=== PATIENT | male | born 1995 | race Caucasian/White ===

== ENCOUNTER 2024-08-14 10:39 | Outpatient (REF) | payer OTHER, SELFPAY ==
[2024-08-14 13:21] LABS: MANUAL DIFF FLAG NO
[2024-08-14 13:33] LABS: Basophils Percent Auto 0.5 % (0-2); Eosinophils Absolute Auto 0.6 X10*3/uL (0.0-0.4); Eosinophils Percent Auto 9.1 % (0-4); Hematocrit 44.3 % (42.0-52.0); Hemoglobin 14.5 g/dl (14.0-18.0); Imm Gran Abs Auto 0.01 X10*3/uL (0.00-0.03); Imm Gran Pct Auto 0.2 % (0.0-0.4); Lymphocytes Absolute Auto 2.6 X10*3/uL (1.2-4.9); Lymphocytes Percent Auto 42.9 % (20-40); Mean Corpuscular HGB Conc 32.7 g/dl (31.0-36.0); Mean Corpuscular Hemoglobin 26.8 pg (27.0-33.0); Mean Corpuscular Volume 81.9 fL (80.0-98.0); Mean Platelet Volume 9.1 fL (9.4-12.4); Monocytes Absolute Auto 0.6 X10*3/uL (0.1-1.2); Monocytes Percent Auto 9.9 % (2-11); Neutrophils Absolute Auto 2.3 x10*3/uL (2.0-8.3); Neutrophils Percent Auto 37.4 % (45-73); Platelet Count 277 X10*3/uL (160-400); Red Blood Count 5.41 X10*6/uL (4.60-5.80); Red Cell Distribution Width 15.1 % (11.0-16.0); White Blood Count 6.2 X10*3/uL (4.8-10.8)
[2024-08-14 14:03] LABS: Estimated Average Glucose 131 mg/dL; Hemoglobin A1c % 6.2 % (<6.0)
[2024-08-14 14:19] LABS: PSA,Total (Free>4and<10) 1.19 ng/mL (0.00-4.00)
[2024-08-14 14:21] LABS: Alanine Aminotransferase 36 U/L (0-40); Albumin Level 4.4 g/dL (3.5-5.0); Alkaline Phosphatase 63 U/L (39-117); Anion Gap 10 (12-20); Aspartate Amino Transferase 33 U/L (5-37); Bilirubin Direct 0.2 mg/dL (0.0-0.5); Bilirubin Total 0.5 mg/dL (0.0-1.0); Blood Urea Nitrogen 14 mg/dL (9-16); C Reactive Protein 0.17 mg/dL (< or = 0.50); Calcium 9.8 mg/dL (8.4-10.2); Carbon Dioxide 28 mmol/L (22-29); Chloride 107 mmol/L (96-108); Cholesterol 196 mg/dL (<200); Estimated Glomerular Filt Rate > 60; Glucose Fasting 96 mg/dL (60-99); HDL Cholesterol 43 mg/dL (>40); LDL Cholesterol Calculated 131 mg/dL (<100); Potassium 4.3 mmol/L (3.3-5.1); Sodium 141 mmol/L (135-145); Total Protein 8.2 g/dL (6.5-8.0); Triglycerides 114 mg/dL (<150)
[2024-08-14 14:22] LABS: TSH reflex Free T4 1.05 uIU/mL (0.32-4.0); Vitamin D 25-OH Total 25.4 ng/mL (>30)
--- OUTSIDE RECORDS SUMMARY | 2024-08-14 14:22 | XMS_ITS | Encounter Summary ---
Author Organization [facility] Address [address] [place] [address] Phone Care Team Providers Care Survey Crew Chief Name Role Phone Missael Gonzalez MD Primary Care Provider [phone] Encounter Details Date Type Department Care Team (Late st Contact Info) Description 08/24/2010 Documentation [facility] [place] [address] [place], [place] [id number] Family Medicine, Physician [address] [place], [place] 586741 Social History Tobacco Use Types Packs/Day Years [...] on filedocumented in this encounter Care Teams Survey Crew Chief Relationship Specialty Start Date End Date Missael Gonzalez MD [address] [place] [address] [place] [address] PCP - General 10/12/17 documented as of this encounter
--- OUTSIDE RECORDS SUMMARY | 2024-08-14 14:22 | XMS_ITS | Encounter Summary ---
Author Organization [facility] Address [address] [place] [address] Phone Care Team Providers Care Fishing Gear Mechanic Name Role Phone Missael Gonzalez MD Primary Care Provider [phone] Encounter Details Date Type Department Care Team (Late st Contact Info) Description 05/05/2012 [facility] [address] [place] [address] Family Medicine, Physician [address] [place], [place] [phone] Social History Tobacco Use Types Packs/Day Years [...] on filedocumented in this encounter Care Teams Fishing Gear Mechanic Relationship Specialty Start Date End Date Missael Gonzalez MD [address] [place] [address] [place] [address] PCP - General 10/12/17 documented as of this encounter
--- OUTSIDE RECORDS SUMMARY | 2024-08-14 14:22 | XMS_ITS | Encounter Summary ---
Author Organization [facility] Address [address] [place] [address] Phone Care Team Providers Care Jackscrew Worker Name Role Phone Missael Gonzalez MD Primary Care Provider [phone] Encounter Details Date Type Department Care Team (Late st Contact Info) Description 09/01/2010 Documentation [facility] [place] [address] [place] [address] Family Medicine, Physician [address] [place], [place] 66[address] Social History Tobacco Use Types Packs/Day Years [...] on filedocumented in this encounter Care Teams Jackscrew Worker Relationship Specialty Start Date End Date Missael Gonzalez MD [address] [place] [address] [place] [address] PCP - General 10/12/17 documented as of this encounter
--- OUTSIDE RECORDS SUMMARY | 2024-08-14 14:22 | XMS_ITS | Encounter Summary ---
Author Organization [facility] Address [address] [place] [address] Phone Care Team Providers Care Spud Sorter Name Role Phone Missael Gonzalez MD Primary Care Provider [phone] Encounter Details Date Type Department Care Team (Late st Contact Info) Description 07/31/2010 Conversion Encounter [facility] [address] [place] [address] [place] [address] Social History Tobacco Use Types Packs/Day Years [...] on filedocumented in this encounter Care Teams Spud Sorter Relationship Specialty Start Date End Date Missael Gonzalez MD [address] [place] [address] [place] [address] PCP - General 10/12/17 documented as of this encounter
--- OUTSIDE RECORDS SUMMARY | 2024-08-14 14:22 | XMS_ITS | Encounter Summary ---
Author Organization [facility] Address [address] [place] [address] Phone Care Team Providers Care Ice Grinder Name Role Phone Missael Gonzalez MD Primary Care Provider [phone] Encounter Details Date Type Department Care Team (Late st Contact Info) Description 09/07/2010 Documentation [facility] [place] [address] [place] [address] Family Medicine, Physician [address] [place], [place] [address] Social History Tobacco Use Types Packs/Day Years [...] on filedocumented in this encounter Care Teams Ice Grinder Relationship Specialty Start Date End Date Missael Gonzalez MD [address] [place] [address] [place] [address] PCP - General 10/12/17 documented as of this encounter
--- OUTSIDE RECORDS SUMMARY | 2024-08-14 14:22 | XMS_ITS | Encounter Summary ---
Author Organization [facility] Address [address] [place] [address] Phone Care Team Providers Care Adult High School Instructor Name Role Phone Missael Gonzalez MD Primary Care Provider [phone] Encounter Details Date Type Department Care Team (Late st Contact Info) Description 05/12/2012 [facility] [address] [place] [address] Family Medicine, Physician [address] [place], [place] [phone] Social History Tobacco Use Types Packs/Day Years [...] on filedocumented in this encounter Care Teams Adult High School Instructor Relationship Specialty Start Date End Date Missael Gonzalez MD [address] [place] [address] [place] [address] PCP - General 10/12/17 documented as of this encounter
--- OUTSIDE RECORDS SUMMARY | 2024-08-14 14:22 | XMS_ITS | Encounter Summary ---
Author Organization [facility] Address [address] [place] [address] Phone Care Team Providers Care District Plant Superintendent Name Role Phone Missael Gonzalez MD Primary Care Provider [phone] Encounter Details Date Type Department Care Team (Late st Contact Info) Description 07/06/2012 Documentation [facility] [place] [address] [place] [address] Family Medicine, Physician [address] [place], [place] 5039[address] Social History Tobacco Use Types Packs/Day Years [...] on filedocumented in this encounter Care Teams District Plant Superintendent Relationship Specialty Start Date End Date Missael Gonzalez MD [address] [place] [address] [place] [address] PCP - General 10/12/17 documented as of this encounter
--- OUTSIDE RECORDS SUMMARY | 2024-08-14 14:22 | XMS_ITS | Encounter Summary ---
Author Organization [facility] Address [address] [place] [address] Phone Care Team Providers Care Research Methodologist Name Role Phone Missael Gonzalez MD Primary Care Provider [phone] Encounter Details Date Type Department Care Team (Late st Contact Info) Description 07/20/2011 Medication Management [facility] [place] [address] [place] [address] Family Medicine, Physician [address] [place] [address] Social History Tobacco Use Types Packs/Day Years [...] on filedocumented in this encounter Care Teams Research Methodologist Relationship Specialty Start Date End Date Missael Gonzalez MD [facility] [facility] [address] PCP - General 10/12/17 documented as of this encounter
--- OUTSIDE RECORDS SUMMARY | 2024-08-14 14:22 | XMS_ITS | Encounter Summary ---
Author Organization [facility] Address [address] [place] [address] Phone Care Team Providers Care Pyrotechnics Press Tender Name Role Phone Missael Gonzalez MD Primary Care Provider Encounter Details Date Type Department Care Team (Late st Contact Info) Description 09/07/2010 [facility] [address] [place] [address] Family Medicine, Physician [address] [place], [place] [address] Social History Tobacco Use Types Packs/Day Years [...] on filedocumented in this encounter Care Teams Pyrotechnics Press Tender Relationship Specialty Start Date End Date Missael Gonzalez MD [address] [place] [address] [place] [address] PCP - General 10/12/17 documented as of this encounter
--- OUTSIDE RECORDS SUMMARY | 2024-08-14 14:22 | XMS_ITS | Clinical Summary ---
Author Organization [facility] Address [address] [place] [address] Phone Care Team Providers Care Terminal Carman Name Role Phone Missael Gonzalez MD Primary Care Provider [phone] Allergies No known active allergies Medications No [...] patient's age to complete this topic Insurance [facility] PUBLIC DIRECT [facility] PUBLIC DIRECT Care Teams Terminal Carman Relationship Specialty Start Date End Date Missael Gonzalez MD [address] [place] [address] [place] [address] PCP - General 10/12/17
--- OUTSIDE RECORDS SUMMARY | 2024-08-14 14:22 | XMS_ITS | Encounter Summary ---
Author Organization [facility] Address [address] [place] [address] Phone Care Team Providers Care Patent Prosecution Attorney Name Role Phone Missael Gonzalez MD Primary Care Provider [phone] Encounter Details Date Type Department Care Team (Late st Contact Info) Description 08/18/2010 Documentation [facility] [place] [address] [place] [address] Family Medicine, Physician [address] [place], [place] [address] Social History Tobacco Use Types Packs/Day Years [...] on filedocumented in this encounter Care Teams Patent Prosecution Attorney Relationship Specialty Start Date End Date Missael Gonzalez MD [address] [place] [address] [place] [address] PCP - General 10/12/17 documented as of this encounter
--- OUTSIDE RECORDS SUMMARY | 2024-08-14 14:22 | XMS_ITS | Encounter Summary ---
Author Organization [facility] Address [address] [place] [address] Phone Care Team Providers Care Electroplater Helper Name Role Phone Missael Gonzalez MD Primary Care Provider Encounter Details Date Type Department Care Team (Late st Contact Info) Description 08/12/2010 Documentation [facility] [place] Family [place] [address] [place] [address] Family Medicine, Physician [address] [place], [place] [address] Social History Tobacco Use Types Packs/Day Years [...] on filedocumented in this encounter Care Teams Electroplater Helper Relationship Specialty Start Date End Date Missael Gonzalez MD [address] [place] [address] [place] [address] PCP - General 10/12/17 documented as of this encounter
--- OUTSIDE RECORDS SUMMARY | 2024-08-14 14:22 | XMS_ITS | Encounter Summary ---
Author Organization [facility] Address [address] [place] [address] Phone Care Team Providers Care Cancer Registry Manager Name Role Phone Missael Gonzalez MD Primary Care Provider [phone] Encounter Details Date Type Department Care Team (Late st Contact Info) Description 07/30/2010 Documentation [facility] [place] [address] [place], [place] [phone] Family Medicine, Physician [address] [place], [place] [address] Social History Tobacco Use Types Packs/Day Years [...] on filedocumented in this encounter Care Teams Cancer Registry Manager Relationship Specialty Start Date End Date Missael Gonzalez MD [address] [place] [address] [place] [address] PCP - General 10/12/17 documented as of this encounter
--- OUTSIDE RECORDS SUMMARY | 2024-08-14 14:22 | XMS_ITS | Encounter Summary ---
Author Organization [facility] Address [address] [place] [address] Phone Care Team Providers Care School Cafeteria Head Cook Name Role Phone Missael Gonzalez MD Primary Care Provider [phone] Encounter Details Date Type Department Care Team (Late st Contact Info) Description 08/18/2010 Documentation [facility] [place] [address] [place] [address] Family Medicine, Physician [address] [place], [place] [address] Social History Tobacco Use Types Packs/Day Years [...] on filedocumented in this encounter Care Teams School Cafeteria Head Cook Relationship Specialty Start Date End Date Missael Gonzalez MD [address] [place] [address] [place] [address] PCP - General 10/12/17 documented as of this encounter
--- OUTSIDE RECORDS SUMMARY | 2024-08-14 14:22 | XMS_ITS | Encounter Summary ---
Author Organization [facility] Address [address] [place] [address] Phone Care Team Providers Care Clamper Name Role Phone Missael Gonzalez MD Primary Care Provider [phone] Encounter Details Date Type Department Care Team (Late st Contact Info) Description 07/30/2010 [facility] [address] [place] [address] Family Medicine, Physician [address] [place], [place] [phone] Social History Tobacco Use Types Packs/Day Years [...] on filedocumented in this encounter Care Teams Clamper Relationship Specialty Start Date End Date Missael Gonzalez MD [address] [place] [address] [place] [address] PCP - General 10/12/17 documented as of this encounter
--- OUTSIDE RECORDS SUMMARY | 2024-08-14 14:23 | XMS_ITS | Encounter Summary ---
Author Organization [facility] Address [address] [place] [address] Phone Care Team Providers Care Maintenance Foreman Name Role Phone Missael Gonzalez MD Primary Care Provider [phone] Encounter Details Date Type Department Care Team (Late st Contact Info) Description 09/06/2017 Documentation [facility] [place] [address] [place] [address] Family Medicine, Physician [address] [place], [place] [address] Social History Tobacco Use Types Packs/Day Years [...] on filedocumented in this encounter Care Teams Maintenance Foreman Relationship Specialty Start Date End Date Missael Gonzalez MD [address] [place] [address] [place] [address] PCP - General 10/12/17 documented as of this encounter
--- OUTSIDE RECORDS SUMMARY | 2024-08-14 14:23 | XMS_ITS | Encounter Summary ---
Author Organization [facility] Address [address] [place] [address] Phone Care Team Providers Care Fiberglass Laminator Name Role Phone Missael Gonzalez MD Primary Care Provider Encounter Details Date Type Department Care Team (Late st Contact Info) Description 06/20/2017 Medication Management [facility] [place] [address] [place] [address] Family Medicine, Physician [address] [place], [place] [address] Social History Tobacco Use Types Packs/Day Years [...] on filedocumented in this encounter Care Teams Fiberglass Laminator Relationship Specialty Start Date End Date Missael Gonzalez MD [facility] [place] [address] PCP - General 10/12/17 documented as of this encounter
--- OUTSIDE RECORDS SUMMARY | 2024-08-14 14:23 | XMS_ITS | Encounter Summary ---
Author Organization [facility] Address [address] [place] [address] Phone Care Team Providers Care Injection Molding Machine Setter Name Role Phone Missael Gonzalez MD Primary Care Provider [phone] Encounter Details Date Type Department Care Team (Late st Contact Info) Description 08/01/2013 [facility] [address] [place] [address] Family Medicine, Physician [address] [place], [place] [phone] Social History Tobacco Use Types Packs/Day Years [...] on filedocumented in this encounter Care Teams Injection Molding Machine Setter Relationship Specialty Start Date End Date Missael Gonzalez MD [address] [place] [address] [place] [address] PCP - General 10/12/17 documented as of this encounter
--- OUTSIDE RECORDS SUMMARY | 2024-08-14 14:23 | XMS_ITS | Encounter Summary ---
Author Organization [facility] Address [address] [place] [address] Phone Care Team Providers Care Parking Lot Spotter Name Role Phone Missael Gonzalez MD Primary Care Provider [phone] Encounter Details Date Type Department Care Team (Late st Contact Info) Description 09/20/2014 Documentation [facility] [place] [address] [place] [address] Family Medicine, Physician [address] [place], [place] [address] Social History Tobacco Use Types Packs/Day Years [...] on filedocumented in this encounter Care Teams Parking Lot Spotter Relationship Specialty Start Date End Date Missael Gonzalez MD [address] [place] [address] [place] [address] PCP - General 10/12/17 documented as of this encounter
--- OUTSIDE RECORDS SUMMARY | 2024-08-14 14:23 | XMS_ITS | Encounter Summary ---
Author Organization [facility] Address [address] [place] [address] Phone Care Team Providers Care Grade Checker Name Role Phone Missael Gonzalez MD Primary Care Provider [phone] Encounter Details Date Type Department Care Team (Late st Contact Info) Description 09/18/2015 Documentation [facility] [place] [address] [place] [address] Family Medicine, Physician [address] [place], [place] [address] Social History Tobacco Use Types Packs/Day Years [...] on filedocumented in this encounter Care Teams Grade Checker Relationship Specialty Start Date End Date Missael Gonzalez MD [address] [place] [address] [place] [address] PCP - General 10/12/17 documented as of this encounter
--- OUTSIDE RECORDS SUMMARY | 2024-08-14 14:23 | XMS_ITS | Encounter Summary ---
Author Organization [facility] Address [address] [place] [address] Phone Care Team Providers Care Psychotherapist Counselor Name Role Phone Missael Gonzalez MD Primary Care Provider [phone] Encounter Details Date Type Department Care Team (Late st Contact Info) Description 08/12/2015 [facility] [address] [place] [address] Family Medicine, Physician [address] [place], [place] [phone] Social History Tobacco Use Types Packs/Day Years [...] on filedocumented in this encounter Care Teams Psychotherapist Counselor Relationship Specialty Start Date End Date Missael Gonzalez MD [address] [place] [address] [place] [address] PCP - General 10/12/17 documented as of this encounter
--- OUTSIDE RECORDS SUMMARY | 2024-08-14 14:23 | XMS_ITS | Encounter Summary ---
Author Organization [facility] Address [address] [place] [address] Phone Care Team Providers Care Linter Drier Operator Name Role Phone Missael Gonzalez MD Primary Care Provider [phone] Encounter Details Date Type Department Care Team (Late st Contact Info) Description 07/30/2010 Documentation [facility] [place] [address] [place], [place] [address] Family Medicine, Physician [address] [place], [place] [address] Social History Tobacco Use Types Packs/Day Years [...] on filedocumented in this encounter Care Teams Linter Drier Operator Relationship Specialty Start Date End Date Missael Gonzalez MD [address] [place] [address] [place] [address] PCP - General 10/12/17 documented as of this encounter
--- OUTSIDE RECORDS SUMMARY | 2024-08-14 14:23 | XMS_ITS | Encounter Summary ---
Author Organization [facility] Address [address] [place] [address] Phone Care Team Providers Care Sole Layer Name Role Phone Missael Gonzalez MD Primary Care Provider [phone] Encounter Details Date Type Department Care Team (Late st Contact Info) Description 08/12/2014 Documentation [facility] [place] [address] [place] [address] Family Medicine, Physician [address] [place], [place] [address] Social History Tobacco Use Types Packs/Day Years [...] on filedocumented in this encounter Care Teams Sole Layer Relationship Specialty Start Date End Date Missael Gonzalez MD [address] [place] [address] [place] [address] PCP - General 10/12/17 documented as of this encounter
--- OUTSIDE RECORDS SUMMARY | 2024-08-14 14:23 | XMS_ITS | Encounter Summary ---
Author Organization [facility] Address [address] [place] [address] Phone Care Team Providers Care Dermatology Sales Representative Name Role Phone Missael Gonzalez MD Primary Care Provider [phone] Encounter Details Date Type Department Care Team (Late st Contact Info) Description 07/30/2010 Documentation [facility] [place] [address] [place], [place] [id number] Family Medicine, Physician [address] [place], [place] [address] Social History Tobacco Use Types Packs/Day Years [...] on filedocumented in this encounter Care Teams Dermatology Sales Representative Relationship Specialty Start Date End Date Missael Gonzalez MD [address] [place] [address] [place] [address] PCP - General 10/12/17 documented as of this encounter
--- OUTSIDE RECORDS SUMMARY | 2024-08-14 14:23 | XMS_ITS | Encounter Summary ---
Author Organization [facility] Address [address] [place] [address] Phone Care Team Providers Care Vegetable Ii Farmworker Name Role Phone Missael Gonzalez MD Primary Care Provider [phone] Encounter Details Date Type Department Care Team (Late st Contact Info) Description 08/12/2014 Medication Management [facility] Family Medicine [address] [place] [address] Family Medicine, Physician [address], [place] [address] Social History Tobacco Use Types Packs/Day Years [...] on filedocumented in this encounter Care Teams Vegetable Ii Farmworker Relationship Specialty Start Date End Date Missael Gonzalez MD [facility] [place] [address] PCP - General 10/12/17 documented as of this encounter
--- OUTSIDE RECORDS SUMMARY | 2024-08-14 14:23 | XMS_ITS | Encounter Summary ---
Author Organization [facility] Address [address] [place] [address] Phone Care Team Providers Care Mud Grinder Name Role Phone Missael Gonzalez MD Primary Care Provider [phone] Encounter Details Date Type Department Care Team (Late st Contact Info) Description 08/01/2013 Documentation [facility] [place] [address] [place], [place] [id number] Family Medicine, Physician [address] [place], [place] [address] Social History Tobacco Use Types Packs/Day Years [...] on filedocumented in this encounter Care Teams Mud Grinder Relationship Specialty Start Date End Date Missael Gonzalez MD [address] [place] [address] [place] [address] PCP - General 10/12/17 documented as of this encounter
--- OUTSIDE RECORDS SUMMARY | 2024-08-14 14:23 | XMS_ITS | Encounter Summary ---
Author Organization [facility] Address [address] [place] [address] Phone Care Team Providers Care Distribution Systems Superintendent Name Role Phone Missael Gonzalez MD Primary Care Provider [phone] Encounter Details Date Type Department Care Team (Late st Contact Info) Description 02/25/2015 Medication Management [facility] Family Medicine [address] [place] [address] Family Medicine, Physician [address] [place], [place] [address] Social History Tobacco Use Types Packs/Day Years [...] on filedocumented in this encounter Care Teams Distribution Systems Superintendent Relationship Specialty Start Date End Date Missael Gonzalez MD [facility]6 [facility] [place] [address] PCP - General 10/12/17 documented as of this encounter
--- OUTSIDE RECORDS SUMMARY | 2024-08-14 14:23 | XMS_ITS | Encounter Summary ---
Author Organization [facility] Address [address] [place] [address] Phone Care Team Providers Care Dough Mixing Machine Operator Name Role Phone Missael Gonzalez MD Primary Care Provider [phone] Encounter Details Date Type Department Care Team (Late st Contact Info) Description 07/30/2010 Consult [facility] [address] [place] [address] Family Medicine, Physician [address] [place], [place] [address] Social History Tobacco Use Types Packs/Day Years [...] on filedocumented in this encounter Care Teams Dough Mixing Machine Operator Relationship Specialty Start Date End Date Missael Gonzalez MD [address] [place] [address] [place] [address] PCP - General 10/12/17 documented as of this encounter
--- OUTSIDE RECORDS SUMMARY | 2024-08-14 14:23 | XMS_ITS | Encounter Summary ---
Author Organization [facility] Address [address] [place] [address] Phone Care Team Providers Care Crop Picker Name Role Phone Missael Gonzalez MD Primary Care Provider [phone] Encounter Details Date Type Department Care Team (Late st Contact Info) Description 07/30/2010 Documentation [facility] [place] [address] [place], [place] [id number] Family Medicine, Physician [address] [place], [place] [address] Social History Tobacco Use Types Packs/Day Years [...] on filedocumented in this encounter Care Teams Crop Picker Relationship Specialty Start Date End Date Missael Gonzalez MD [address] [place] [address] [place] [address] PCP - General 10/12/17 documented as of this encounter
--- OUTSIDE RECORDS SUMMARY | 2024-08-14 14:23 | XMS_ITS | Encounter Summary ---
Author Organization [facility] Address [address] [place] [address] Phone Care Team Providers Care Salesperson Handbags Name Role Phone Missael Gonzalez MD Primary Care Provider [phone] Encounter Details Date Type Department Care Team (Late st Contact Info) Description 07/30/2010 Documentation [facility] [place] [address] [place], [place] [id number] Family Medicine, Physician [address] [place], [place] [address] Social History Tobacco Use Types Packs/Day Years [...] on filedocumented in this encounter Care Teams Salesperson Handbags Relationship Specialty Start Date End Date Missael Gonzalez MD [address] [place] [address] [place] [address] PCP - General 10/12/17 documented as of this encounter
--- OUTSIDE RECORDS SUMMARY | 2024-08-14 14:23 | XMS_ITS | Encounter Summary ---
Author Organization [facility] Address [address] [place] [address] Phone Care Team Providers Care Foreign Car Mechanic Name Role Phone Missael Gonzalez MD Primary Care Provider [phone] Encounter Details Date Type Department Care Team (Late st Contact Info) Description 06/19/2015 Documentation [facility] [place] [address] [place] [address] Family Medicine, Physician [address] [place], [place] [address] Social History Tobacco Use Types Packs/Day Years [...] on filedocumented in this encounter Care Teams Foreign Car Mechanic Relationship Specialty Start Date End Date Missael Gonzalez MD [address] [place] [address] [place] [address] PCP - General 10/12/17 documented as of this encounter
--- OUTSIDE RECORDS SUMMARY | 2024-08-14 14:23 | XMS_ITS | Encounter Summary ---
Author Organization [facility] Address [address] [place] [address] Phone Care Team Providers Care Lap Winder Name Role Phone Missael Gonzalez MD Primary Care Provider [phone] Encounter Details Date Type Department Care Team (Late st Contact Info) Description 08/14/2016 Medication Management [facility] [place] [address] [place] [address] Family Medicine, Physician [address] [place], [place] [address]061 Social History Tobacco Use Types Packs/Day Years [...] on filedocumented in this encounter Care Teams Lap Winder Relationship Specialty Start Date End Date Missael Gonzalez MD [facility] [place] [address] PCP - General 10/12/17 documented as of this encounter
--- OUTSIDE RECORDS SUMMARY | 2024-08-14 14:23 | XMS_ITS | Encounter Summary ---
Author Organization [facility] Address [address] [place] [address] Phone Care Team Providers Care Corporate Risk Analyst Name Role Phone Missael Gonzalez MD Primary Care Provider [phone] Encounter Details Date Type Department Care Team (Late st Contact Info) Description 08/13/2014 Lab [facility] Family Medicine [address] [place] [address] Family Medicine, Physician [address] [place], [place] [id number] Social History Tobacco Use Types Packs/Day Years [...] on filedocumented in this encounter Care Teams Corporate Risk Analyst Relationship Specialty Start Date End Date Missael Gonzalez MD [address] [place] [address] [place] [address] PCP - General 10/12/17 documented as of this encounter
--- OUTSIDE RECORDS SUMMARY | 2024-08-14 14:23 | XMS_ITS | Encounter Summary ---
Author Organization [facility] Address [address] [place] [address] Phone Care Team Providers Care Bell Staff Name Role Phone Missael Gonzalez MD Primary Care Provider [phone] Encounter Details Date Type Department Care Team (Late st Contact Info) Description 08/01/2013 Medication Management [facility] [place] [address] [place] [address] Family Medicine, Physician [address] [place], [place] [address] Social History Tobacco Use Types Packs/Day Years [...] on filedocumented in this encounter Care Teams Bell Staff Relationship Specialty Start Date End Date Missael Gonzalez MD [facility] [place] [address] PCP - General 10/12/17 documented as of this encounter
--- OUTSIDE RECORDS SUMMARY | 2024-08-14 14:23 | XMS_ITS | Encounter Summary ---
Author Organization [facility] Address [address] [place] [address] Phone Care Team Providers Care Drop Board Man Name Role Phone Missael Gonzalez MD Primary Care Provider [phone] Encounter Details Date Type Department Care Team (Late st Contact Info) Description 09/07/2010 Documentation [facility] [place] [address] [place] [address] Family Medicine, Physician [address] [place], [place] [address] Social History Tobacco Use Types Packs/Day Years [...] on filedocumented in this encounter Care Teams Drop Board Man Relationship Specialty Start Date End Date Missael Gonzalez MD [address] [place] [address] [place] [address] PCP - General 10/12/17 documented as of this encounter
--- OUTSIDE RECORDS SUMMARY | 2024-08-14 14:23 | XMS_ITS | Encounter Summary ---
Author Organization [facility] Address [address] [place] [address] Phone Care Team Providers Care Senior Business Objects Developer Name Role Phone Missael Gonzalez MD Primary Care Provider [phone] Encounter Details Date Type Department Care Team (Late st Contact Info) Description 08/28/2013 Medication Management [facility] [place] [address] [place] [address] Family Medicine, Physician [address] [place] [address] Social History Tobacco Use Types Packs/Day Years [...] on filedocumented in this encounter Care Teams Senior Business Objects Developer Relationship Specialty Start Date End Date Missael Gonzalez MD [facility]6 [facility] [place] [address] PCP - General 10/12/17 documented as of this encounter
--- OUTSIDE RECORDS SUMMARY | 2024-08-14 14:23 | XMS_ITS | Encounter Summary ---
Author Organization [facility] Address [address] [place] [address] Phone Care Team Providers Care Hoseman Name Role Phone Missael Gonzalez MD Primary Care Provider [phone] Encounter Details Date Type Department Care Team (Late st Contact Info) Description 08/01/2013 Documentation [facility] [place] [address] [place], [place] [address] Family Medicine, Physician [address] [place], [place] [address] Social History Tobacco Use Types Packs/Day Years [...] on filedocumented in this encounter Care Teams Hoseman Relationship Specialty Start Date End Date Missael Gonzalez MD [address] [place] [address] [place] [address] PCP - General 10/12/17 documented as of this encounter
--- OUTSIDE RECORDS SUMMARY | 2024-08-14 14:23 | XMS_ITS | Encounter Summary ---
Author Organization [facility] Address [address] [place] [address] Phone Care Team Providers Care Steam Plant Control Room Operator Name Role Phone Missael Gonzalez MD Primary Care Provider [phone] Encounter Details Date Type Department Care Team (Late st Contact Info) Description 08/11/2015 Documentation [facility] [place] [address] [place] [address] Family Medicine, Physician [address] [place], [place] [address] Social History Tobacco Use Types Packs/Day Years [...] on filedocumented in this encounter Care Teams Steam Plant Control Room Operator Relationship Specialty Start Date End Date Missael Gonzalez MD [address] [place] [address] [place] [address] PCP - General 10/12/17 documented as of this encounter
--- OUTSIDE RECORDS SUMMARY | 2024-08-14 14:23 | XMS_ITS | Encounter Summary ---
Author Organization [facility] Address [address] [place] [address] Phone Care Team Providers Care Steel Rod Buster Name Role Phone Missael Gonzalez MD Primary Care Provider [phone] Encounter Details Date Type Department Care Team (Late st Contact Info) Description 08/11/2015 Medication Management [facility] [place] Family Medicine [address] [place] [address] Family Medicine, Physician [address] [place], [place] [address] Social History Tobacco Use Types Packs/Day Years [...] on filedocumented in this encounter Care Teams Steel Rod Buster Relationship Specialty Start Date End Date Missael Gonzalez MD [facility]6 [facility] [place] [address] PCP - General 10/12/17 documented as of this encounter
--- OUTSIDE RECORDS SUMMARY | 2024-08-14 14:23 | XMS_ITS | Encounter Summary ---
Author Organization [facility] Address [address] [place] [address] Phone Care Team Providers Care Assessment Manager Name Role Phone Missael Gonzalez MD Primary Care Provider [phone] Encounter Details Date Type Department Care Team (Late st Contact Info) Description 08/14/2016 Documentation [facility] [place] [address] [place] [address] Family Medicine, Physician [address] [place], [place] [address] Social History Tobacco Use Types Packs/Day Years [...] on filedocumented in this encounter Care Teams Assessment Manager Relationship Specialty Start Date End Date Missael Gonzalez MD [address] [place] [address] [place] [address] PCP - General 10/12/17 documented as of this encounter
[2024-08-14 14:37] LABS: Folate 12.4 ng/mL (> or = 4.0); Vitamin B12 347 pg/mL (200-900)
[2024-08-22 15:33] LABS: Vitamin B1 11 nmol/L (8-30)
== END 2024-08-14 10:40 | disposition home or self-care (01) ==
LOC: HO.HMGCLDS 10:39
PROVIDERS: PCP Physician Assistant Medical; Visit Provider Physician Assistant Medical
DX: J45.909 Unspecified asthma, uncomplicated (principal); I10 Essential (primary) hypertension; E66.01 Morbid (severe) obesity due to excess calories; Z68.41 Body mass index [BMI] 40.0-44.9, adult; I83.819 Varicose veins of unspecified lower extremity with pain; Z76.89 Persons encountering health services in other specified circumstances; Z71.3 Dietary counseling and surveillance; Z13.1 Encounter for screening for diabetes mellitus; Z12.5 Encounter for screening for malignant neoplasm of prostate; Z00.00 Encounter for general adult medical examination without abnormal findings
CPT/HCPCS: 36415; 80053; 80061; 80076; 82248; 82306; 82607; 82746; 83036; 83735; 84153; 84425; 84443; 85025; 86140; 96127

== ENCOUNTER 2024-08-14 10:39 | Outpatient (AMB) | payer OTHER, SELFPAY ==
--- NOTE | 2024-08-14 10:45 | A.OFFPC_ITS ---
Vital Signs 08/14/24 10:46 Height 5 ft 7 in Weight 270 lb BMI 42.3 BP 138/80 Respiration 18 Pulse 76 Pulse Source Pulse Oximeter Temp 97.6 F Temp Source Temporal Artery Scan Pulse Oximetry (%) 97 Oxygen Delivery Method Room Air Intake Visit Reasons: New patient Plastic Dolls Mold Filler Required: No Accompanied by: Self / Same As Patient Allergies No Known Allergies [No Known Allergies*] Allergy (Unverified 08/14/24 10:58) Medication List - Last Reconciled 08/14/24 by Sandra Carson PA-C No Known Home Meds Tobacco use date assessed: 08/14/24 Dental Screening Dental Screen Date: 08/14/24 Did you have a dental visit in the last 12 months?: Yes Did you have a dental problem in the last 6 months where you did not have access to dental care?: No COUNT INCLUDES [facility] Medical History (Updated 08/14/24 @ 11:27 by Sandra Carson PA-C) Morbid obesity with BMI of 40.0-44.9, adult Establishing care with new doctor, encounter for Varicose veins with pain Hypertension Asthma Family History Mother Mandeep's disease Social History Housing: Apartment Alcohol intake: never Patient Tobacco Use Status: Never used Tobacco service: No Current occupational status: employed Cognitive needs: No Hearing needs: No Vision needs: Yes Questionnaire PHQ-9 Over the last 2 weeks, how often have you been bothered by any of the following problems? 1. Little interest or pleasure in doing things: not at all 2. Feeling down, depressed, or hopeless: not at all 3. Trouble falling or staying asleep, or sleeping too much: not at all 4. Feeling tired or having little energy: not at all 5. Poor appetite or overeating: not at all 6. Feeling bad about yourself - or that you are a failure or have let yourself or your family down: not at all 7. Trouble concentrating on things, such as reading the newspaper or watching television: not at all 8. Moving or speaking so slowly that other people could have noticed. Or the opposite - being so fidgety or restless that you have been moving around a lot more than usual: not at all 9. Thoughts that you would be better off or of hurting yourself in some way: not at all Total score: 0 Depression Screening Interpretation: Negative Depression Screening Done: Yes 80195 - PHQ-9 Billing: Yes Source: Developed by Drs. Itz Garcia, Meg Garduno, Corby Craft and colleagues, with an educational monica from [employer]. Thrive Questionnaire Date Thrive assessed: 08/14/24 I am a: Patient What is your living situation today?: I have a steady place to live Within the past 12 months, did the food you bought not last and you didn't have the money to get more?: Never true Within the past 12 months, did you worry whether your food would run out before you got money to buy more?: Never true Do you have trouble paying for medicines?: No Do you have trouble getting transportation to medical appointments?: No Do you have trouble paying your heating and electricity bill?: No Do you have trouble taking care of your child, family member or friend?: No Do you have trouble with day-to-day activities such as bathing, preparing meals, shopping, managing finances, etc.?: No Are you currently unemployed and looking for a job?: No Are you interested in more education?: No THRIVE Score: 0 AUDIT C Alcohol Use Questionnaire (AUDIT-C) 1. How often do you have a drink containing alcohol?: Never 3. How often do you have six or more drinks on one occasion?: Never Total Score: 0 Score Reviewed/Action Taken: No THERESE-7 AMB Questionnaire THERESE-7 Date THERESE - 7 assessed: 08/14/24 Feeling nervous, anxious, or on edge: 0 = Not at all Not being able to stop or control worryin = Several days Worrying too much about different things: 0 = Not at all Trouble relaxin = Not at all Being so restless that it is hard to sit still: 0 = Not at all Becoming easily annoyed or irritable: 0 = Not at all Feeling afraid as if something awful might happen: 0 = Not at all Total THERESE-7 score (0-4 normal; 5-9 mild; 10-14 moderate; 15-21 severe): 1 Source: Developed by Drs. Itz Garcia, Meg Garduno, Corby Craft and colleagues, with an educational monica from [employer]. THERESE-7 Assessment Billing THERESE-7 Assessment Tool: THERESE-7 Assessment 35137 Physical exam (Primary Care) Vital Signs: Last Vital Signs Temp 97.6 F 08/14/24 10:46 Pulse 76 08/14/24 10:46 Resp 18 08/14/24 10:46 BP 138/80 08/14/24 10:46 Pulse Ox 97 08/14/24 10:46 Oxygen Delivery Method Room Air 08/14/24 10:46 BMI result Body Mass Index 42.3 Tobacco/Smoking Status: Tobacco use Status Tobacco use date assessed 08/14/24 08/14/24 10:53 Patient Tobacco Use Status Never used Tobacco 08/14/24 10:53 PHQ-9: PHQ-9 Score PHQ-9: Total score 0 08/14/24 10:53 Depression Screening Interpretation: Negative Thrive Assessment: Date of Thrive Assessment Date Thrive assessed 08/14/24 08/14/24 10:53 Coding Level of Care Code New Pt Level 4 (35575) Complex EM visit Add On G2211 Diagnoses Asthma J45.909 Hypertension I10 Varicose veins with pain I83.819 Establishing care with new doctor, encounter for Z76.89 Morbid obesity with BMI of 40.0-44.9, adult E66.01; Z68.41 Additional Codes PHQ-9 - 06223 - PHQ-9 Billing: Yes ([id number]) THERESE-7 Assessment Billing - THERESE-7 Assessment Tool: THERESE-7 Assessment 40427 ([id number]) Assessment & Plan Assessment & Plan (1) Asthma: Code(s): J45.909 - Unspecified asthma, uncomplicated Category: Medical Plan: Patient reports childhood asthma. He has not had any symptoms since then. Condition is chronic and stable continue to monitor. (2) Hypertension: Code(s): I10 - Essential (primary) hypertension Category: Medical Plan: Patient being diagnosed with hypertension at this time. Blood pressure over the past 2 weeks that he has been monitoring have been 140/85 for an average range. Therefore patient will be started on lisinopril 5 mg daily. Patient to return in 1 month for blood pressure check. (3) Varicose veins with pain: Code(s): I83.819 - Varicose veins of unspecified lower extremity with pain Category: Medical Plan: Patient with varicose veins to bilateral lower extremity although reports pain to the right lower extremity. There is no calf tenderness or lower extremity edema. Will refer to vascular surgery for possible vein stripping. Condition is chronic and stable continue to monitor. (4) Establishing care with new doctor, encounter for: Code(s): Z76.89 - Persons encountering health services in other specified circumstances Category: Medical Plan: Patient has not seen a PCP since his Pediatrics at [facility] with Dr. Gonzalez. Will obtain records. (5) Morbid obesity with BMI of 40.0-44.9, adult: Code(s): E66.01 - Morbid (severe) obesity due to excess calories; Z68.41 - Body mass index [BMI] 40.0-44.9, adult Category: Medical Plan: Patient improving his diet intake and exercise regimen. Condition is chronic and stable continue to monitor. Plan Plan Patient was informed and verbally consented to the use of an ambient scribe for clinic note documentation during this visit. 1. Essential Hypertension Plan includes initiating lisinopril 5 mg once daily to manage blood pressure, along with dietary sodium restriction. The patient will monitor his blood pressure two hours post-medication intake. A follow-up appointment in one month will assess blood pressure control and discuss any side effects. Pending laboratory work will further aid in evaluating the patient's overall cardiovascular health. 2. History Of Asthma In Childhood Currently inactive; monitoring without active intervention is recommended. The patient was advised on recognizing potential respiratory symptoms and keeping vigilant during high-risk situations. 3. Varicose veins to bilateral lower extremity with pain No calf tenderness bilaterally. No lower extremity edema noted. No signs of infection. Will refer to vascular surgery for further evaluation and treatment for possible vein stripping. Discussion Notes I reviewed Lorenzo's diagnosis of hypertension and the initiation of lisinopril 5 mg daily. We discussed the risks of unchecked hypertension, including cardiovascular complications. I emphasized lifestyle modifications, specifically reducing dietary sodium, as a non-pharmacological intervention to support medication. The patient agreed to regular blood pressure monitoring and plans to revisit in one month for further evaluation. Future lab tests will confirm the absence of additional comorbidities such as diabetes. Discussions included the minor role aspirin may have played in past management. I addressed the inactive childhood asthma, reassuring Lorenzo that no current intervention is needed unless symptoms change. Referrals for potential varicose veins were discussed should vascular issues persist. Orders: Orders PSA,Total (Free>4and<10) Today Z00.00 - Encounter for general adult medical examination without abnormal findings Referrals Vascular Surgery Referral I10 - Essential (primary) hypertension, I83.819 - Varicose veins of unspecified lower extremity with pain, J45.909 - Unspecified asthma, uncomplicated, Z76.89 - Persons encountering health services in other specified circumstances Medications: New lisinopril 5 mg PO DAILY 90 tabs 1RF Patient Instructions: Patient Instructions - Take lisinopril 5 mg once daily as prescribed. - Check your blood pressure two hours after taking lisinopril and record the readings. - Reduce salt intake in your diet. Avoid or limit high-sodium foods. - Attend a follow-up appointment in one month. - Go for a blood test directly after this appointment as directed. - Contact us if you experience dizziness or headaches after medication, or if blood pressure falls below 120/80 mmHg and symptoms arise. - Continue monitoring for any asthma-like symptoms and reach out if respiratory issues arise. Scribe Plan - Not visible on output: History of Present Illness The patient is a 29-year-old male presenting with the primary reason to establish care and evaluate blood pressure. He is diagnosed with essential hypertension after observing elevated blood pressure readings at home. During today's evaluation, his blood pressure is recorded at 130/80 mmHg, showing an improvement. He has a history of asthma that was present during childhood but has not persisted into his adult years. The patient manages his hypertension currently with aspirin at times, although adherence has been inconsistent. He is concerned about dietary effects on his blood pressure, especially due to the high salt intake he recognized in his diet. The effects of dietary modification were discussed as potential enhancers of his medical regimen's effectiveness. His medication adherence and future lab work will further guide management plans. Social History - Family: for 7 years, expecting a child - Nutrition: Regular high-salt intake, plans to reduce sodium - Lifestyle: Indicated moderate to low exercise activity Review of Systems - Respiratory: Reports resolution of cough - Cardiovascular: Reports monitoring blood pressure - Gastrointestinal: Denies current gastrointestinal symptoms Physical Exam Appearance: Alert. Oriented X3. No acute distress. Head: Normal external exam. Normocephalic. Atraumatic. Eyes: Pupils are equal, round, and reactive to light. Extraocular movements intact. Conjunctiva and sclera normal. Eyelids normal. Ears: External auditory canal normal. Tympanic membranes normal. Throat: Pharynx normal. Uvula midline. Moist mucous membranes. Neck: Normal inspection. Neck supple. Full range of motion. No adenopathy. Thyroid Normal. No meningeal signs. No neck mass noted. Cardiovascular: Normal heart rate and rhythm. Heart sound normal. No murmurs noted. Pulses normal throughout. Respiratory: No respiratory distress. Painless inspiration. Breath sounds normal. No wheezes/rales/rhonchi noted. Chest nontender. No accessory muscle usage noted or decreased air movement noted. Abdomen: Soft and nontender. Bowel sounds normal in all 4 quadrants. No distention noted. No organomegaly noted. No visible injury noted. Back: No costovertebral angle tenderness. Full range of motion noted. Skin: Skin warm and dry. Normal skin color. Normal skin turgor. No rashes/lesions/lacerations noted. Extremities: No lower extremity edema. Extremities exhibit normal range of motion. Extremities nontender. Neuro: Oriented X 3. No motor deficit. No sensory deficit. Reflexes normal. Plan Patient was informed and verbally consented to the use of an ambient scribe for clinic note documentation during this visit. 1. Essential Hypertension Plan includes initiating lisinopril 5 mg once daily to manage blood pressure, along with dietary sodium restriction. The patient will monitor his blood pressure two hours post-medication intake. A follow-up appointment in one month will assess blood pressure control and discuss any side effects. Pending laboratory work will further aid in evaluating the patient's overall cardiovascular health. 2. History Of Asthma In Childhood Currently inactive; monitoring without active intervention is recommended. The patient was advised on recognizing potential respiratory symptoms and keeping vigilant during high-risk situations. Discussion Notes I reviewed Lorenzo's diagnosis of hypertension and the initiation of lisinopril 5 mg daily. We discussed the risks of unchecked hypertension, including cardiovascular complications. I emphasized lifestyle modifications, specifically reducing dietary sodium, as a non-pharmacological intervention to support medication. The patient agreed to regular blood pressure monitoring and plans to revisit in one month for further evaluation. Future lab tests will confirm the absence of additional comorbidities such as diabetes. Discussions included the minor role aspirin may have played in past management. I addressed the inactive childhood asthma, reassuring Lorenzo that no current intervention is needed unless symptoms change. Referrals for potential varicose veins were discussed should vascular issues persist. Patient Instructions - Take lisinopril 5 mg once daily as prescribed. - Check your blood pressure two hours after taking lisinopril and record the readings. - Reduce salt intake in your diet. Avoid or limit high-sodium foods. - Attend a follow-up appointment in one month. - Go for a blood test directly after this appointment as directed. - Contact us if you experience dizziness or headaches after medication, or if blood pressure falls below 120/80 mmHg and symptoms arise. - Continue monitoring for any asthma-like symptoms and reach out if respiratory issues arise.
[2024-08-14 10:46] VITALS: BP 138/80; PULSE 76; RESP 18; TEMP 36.4; O2SAT 97; BMI 42.3
--- OUTSIDE RECORDS SUMMARY | 2024-08-14 12:46 | XMS_ITS | Encounter Summary ---
Author Organization [facility] Address [address] [place] [address] Phone Care Team Providers Care Insurance Claims Clerk Name Role Phone Missael Gonzalez MD Primary Care Provider [phone] Encounter Details Date Type Department Care Team (Late st Contact Info) Description 05/12/2012 Lab [facility] [address] [place] [address] Family Medicine, Physician [address] [place], [place] [id number] Social History Tobacco Use Types Packs/Day Years Used Date Smoking Tobacco: Never Assessed Sex and Gender Information Value Date Recorded Sex Assigned at Not on file Legal Sex Male 6:25 PM EDT Gender Identity Not on file Sexual Orientation Not on file documented as of this encounter Plan of Treatment Not on file documented as of this encounter Visit Diagnoses Not on filedocumented in this encounter Care Teams Insurance Claims Clerk Relationship Specialty Start Date End Date Missael Gonzalez MD [address] [place] [address] [place] [address] PCP - General 10/12/17 documented as of this encounter
--- OUTSIDE RECORDS SUMMARY | 2024-08-14 12:46 | XMS_ITS | Encounter Summary ---
Author Organization [facility] Address [address] [place] [address] Phone Care Team Providers Care Cash Register Servicer Name Role Phone Missael Gonzalez MD Primary Care Provider [phone] Encounter Details Date Type Department Care Team (Late st Contact Info) Description 07/20/2011 Medication Management [facility] Family Medicine [address] [place] [address] Family Medicine, Physician [address] [place] [address] Social History Tobacco Use Types Packs/Day Years Used Date Smoking Tobacco: Never Comments:Never Smoker Sex and Gender Information Value Date Recorded Sex Assigned at Not on file Legal Sex Male 6:25 PM EDT Gender Identity Not on file Sexual Orientation Not on file documented as of this encounter Plan of Treatment Not on file documented as of this encounter Visit Diagnoses Not on filedocumented in this encounter Care Teams Cash Register Servicer Relationship Specialty Start Date End Date Missael Gonzalez MD [facility] [place] [address] PCP - General 10/12/17 documented as of this encounter
--- OUTSIDE RECORDS SUMMARY | 2024-08-14 12:47 | XMS_ITS | Encounter Summary ---
Author Organization [facility] Address [address] [place] [address] Phone Care Team Providers Care Precision Layout Worker Name Role Phone Missael Gonzalez MD Primary Care Provider [phone] Encounter Details Date Type Department Care Team (Late st Contact Info) Description 09/01/2010 Documentation [facility] Family Medicine [address] [place] [address] Family Medicine, Physician [address] [place], [place] [address] Social History Tobacco Use Types Packs/Day Years [...] on filedocumented in this encounter Care Teams Precision Layout Worker Relationship Specialty Start Date End Date Missael Gonzalez MD [address] [place] [address] [place] [address] PCP - General 10/12/17 documented as of this encounter
--- OUTSIDE RECORDS SUMMARY | 2024-08-14 12:47 | XMS_ITS | Encounter Summary ---
Author Organization [facility] Address [address] [place] [address] Phone Care Team Providers Care Stab Setter And Driller Name Role Phone Missael Gonzalez MD Primary Care Provider [phone] Encounter Details Date Type Department Care Team (Late st Contact Info) Description 09/07/2010 [facility] [address] [place] [address] Family Medicine, Physician [address] [place], [place] [id number] Social History Tobacco Use Types Packs/Day Years [...] on filedocumented in this encounter Care Teams Stab Setter And Driller Relationship Specialty Start Date End Date Missael Gonzalez MD [address] [place] [address] [place] [address] PCP - General 10/12/17 documented as of this encounter
--- OUTSIDE RECORDS SUMMARY | 2024-08-14 12:47 | XMS_ITS | Encounter Summary ---
Author Organization [facility] Address [address] [place] [address] Phone Care Team Providers Care Anchor Tack Puller Name Role Phone Missael Gonzalez MD Primary Care Provider [phone] Encounter Details Date Type Department Care Team (Late st Contact Info) Description 08/18/2010 Documentation [facility] [address] [place] [address] Family Medicine, Physician [address] [place], [place] [address] Social History Tobacco Use Types Packs/Day Years [...] on filedocumented in this encounter Care Teams Anchor Tack Puller Relationship Specialty Start Date End Date Missael Gonzalez MD [address] [place] [address] [place] [address] PCP - General 10/12/17 documented as of this encounter
--- OUTSIDE RECORDS SUMMARY | 2024-08-14 12:47 | XMS_ITS | Encounter Summary ---
Author Organization [facility] Address [address] [place] [address] Phone Care Team Providers Care Solid Waste Division Supervisor Name Role Phone Missael Gonzalez MD Primary Care Provider [phone] Encounter Details Date Type Department Care Team (Late st Contact Info) Description 08/13/2014 [facility] [address] [place] [address] Family Medicine, Physician [address] [place], [place] [id number] Social History Tobacco Use Types Packs/Day Years [...] on filedocumented in this encounter Care Teams Solid Waste Division Supervisor Relationship Specialty Start Date End Date Missael Gonzalez MD [address] [place] [address] [place] [address] PCP - General 10/12/17 documented as of this encounter
--- OUTSIDE RECORDS SUMMARY | 2024-08-14 12:47 | XMS_ITS | Encounter Summary ---
Author Organization [facility] Address [address] [place] [address] Phone Care Team Providers Care Workforce Development Assistant Name Role Phone Missael Gonzalez MD Primary Care Provider [phone] Encounter Details Date Type Department Care Team (Late st Contact Info) Description 08/12/2015 [facility] [address] [place] [address] Family Medicine, Physician [address] [place], [place] [id number] Social History Tobacco Use Types Packs/Day Years [...] on filedocumented in this encounter Care Teams Workforce Development Assistant Relationship Specialty Start Date End Date Missael Gonzalez MD [address] [place] [address] [place] [address] PCP - General 10/12/17 documented as of this encounter
--- OUTSIDE RECORDS SUMMARY | 2024-08-14 12:47 | XMS_ITS | Encounter Summary ---
Author Organization [facility] Address [address] [place] [address] Phone Care Team Providers Care Development Professional Name Role Phone Missael Gonzalez MD Primary Care Provider [phone] Encounter Details Date Type Department Care Team (Late st Contact Info) Description 08/01/2013 Medication Management [facility] [address] [place] [address] Family Medicine, Physician [address] [place], [place] [address] Social History Tobacco Use Types Packs/Day Years [...] on filedocumented in this encounter Care Teams Development Professional Relationship Specialty Start Date End Date Missael Gonzalez MD [facility] [facility] [place] [address] PCP - General 10/12/17 documented as of this encounter
--- OUTSIDE RECORDS SUMMARY | 2024-08-14 12:47 | XMS_ITS | Encounter Summary ---
Author Organization [facility] Address [address] [place] [address] Phone Care Team Providers Care Crimper Operator Name Role Phone Missael Gonzalez MD Primary Care Provider [phone] Encounter Details Date Type Department Care Team (Late st Contact Info) Description 08/01/2013 [facility] [address] [place] [address] Family Medicine, Physician [address] [place], [place] [phone] Social History Tobacco Use Types Packs/Day Years [...] on filedocumented in this encounter Care Teams Crimper Operator Relationship Specialty Start Date End Date Missael Gonzalez MD [address] [place] [address] [place] [address] PCP - General 10/12/17 documented as of this encounter
--- OUTSIDE RECORDS SUMMARY | 2024-08-14 12:47 | XMS_ITS | Encounter Summary ---
Author Organization [facility] Address [address] [place] [address] Phone Care Team Providers Care Pet Training Instructor Name Role Phone Missael Gonzalez MD Primary Care Provider Encounter Details Date Type Department Care Team (Late st Contact Info) Description 08/11/2015 Medication Management [facility] Family Medicine [address] [place] [address] Family Medicine, Physician [address], [place] [address] Social History Tobacco Use Types Packs/Day Years [...] on filedocumented in this encounter Care Teams Pet Training Instructor Relationship Specialty Start Date End Date Missael Gonzalez MD [facility] [place] [address] PCP - General 10/12/17 documented as of this encounter
--- OUTSIDE RECORDS SUMMARY | 2024-08-14 12:47 | XMS_ITS | Encounter Summary ---
Author Organization [facility] Address [address] [place] [address] Phone Care Team Providers Care Bank Representative Name Role Phone Missael Gonzalez MD Primary Care Provider [phone] Encounter Details Date Type Department Care Team (Late st Contact Info) Description 07/06/2012 Documentation [facility] [place] [address] [place] [address] Family Medicine, Physician [address] [place], [place] [address] Social History Tobacco Use Types Packs/Day Years [...] on filedocumented in this encounter Care Teams Bank Representative Relationship Specialty Start Date End Date Missael Gonzalez MD [address] [place] [address] [place] [address] PCP - General 10/12/17 documented as of this encounter
--- OUTSIDE RECORDS SUMMARY | 2024-08-14 12:47 | XMS_ITS | Encounter Summary ---
Author Organization [facility] Address [address] [place] [address] Phone Care Team Providers Care Tour Manager Name Role Phone Missael Gonzalez MD Primary Care Provider [phone] Encounter Details Date Type Department Care Team (Late st Contact Info) Description 06/20/2017 Medication Management [facility] [place] [address] [place] [address] Family Medicine, Physician [address] [place], [place] [address]31 Social History Tobacco Use Types Packs/Day Years [...] on filedocumented in this encounter Care Teams Tour Manager Relationship Specialty Start Date End Date Missael Gonzalez MD [facility] [place] [address] PCP - General 10/12/17 documented as of this encounter
--- OUTSIDE RECORDS SUMMARY | 2024-08-14 12:47 | XMS_ITS | Encounter Summary ---
Author Organization [facility] Address [address] [place] [address] Phone Care Team Providers Care Key Holder Name Role Phone Missael Gonzalez MD Primary Care Provider [phone] Encounter Details Date Type Department Care Team (Late st Contact Info) Description 08/18/2010 Documentation [facility] [place] Family Medicine [address] [place] [address] Family Medicine, Physician [address] [place], [place] [address]91 Social History Tobacco Use Types Packs/Day Years [...] on filedocumented in this encounter Care Teams Key Holder Relationship Specialty Start Date End Date Missael Gonzalez MD [address] [place] [address] [place] [address] PCP - General 10/12/17 documented as of this encounter
--- OUTSIDE RECORDS SUMMARY | 2024-08-14 12:47 | XMS_ITS | Encounter Summary ---
Author Organization [facility] Address [address] [place] [address] Phone Care Team Providers Care Coding Assistant Name Role Phone Missael Gonzalez MD Primary Care Provider [phone] Encounter Details Date Type Department Care Team (Late st Contact Info) Description 08/24/2010 Documentation [facility] [place] [address] [place], [place] [id number] Family Medicine, Physician [address] [place], [place] 94[address] Social History Tobacco Use Types Packs/Day Years [...] on filedocumented in this encounter Care Teams Coding Assistant Relationship Specialty Start Date End Date Missael Gonzalez MD [address] [place] [address] [place] [address] PCP - General 10/12/17 documented as of this encounter
--- OUTSIDE RECORDS SUMMARY | 2024-08-14 12:47 | XMS_ITS | Encounter Summary ---
Author Organization [facility] Address [address] [place] [address] Phone Care Team Providers Care Patient Support Assistant Name Role Phone Missael Gonzalez MD Primary Care Provider [phone] Encounter Details Date Type Department Care Team (Late st Contact Info) Description 08/12/2014 Documentation [facility] [place] Family Medicine [address] [place] [address] Family Medicine, Physician [address] [place], [place] 415491 Social History Tobacco Use Types Packs/Day Years [...] on filedocumented in this encounter Care Teams Patient Support Assistant Relationship Specialty Start Date End Date Missael Gonzalez MD [address] [place] [address] [place] [address] PCP - General 10/12/17 documented as of this encounter
--- OUTSIDE RECORDS SUMMARY | 2024-08-14 12:47 | XMS_ITS | Encounter Summary ---
Author Organization [facility] Address [address] [place] [address] Phone Care Team Providers Care Underwriter Mortgage Loan Name Role Phone Missael Gonzalez MD Primary Care Provider [phone] Encounter Details Date Type Department Care Team (Late st Contact Info) Description 08/28/2013 Medication Management [facility] [place] [address] [place] [address] Family Medicine, Physician [address] [place] [address] Social History Tobacco Use Types Packs/Day Years [...] on filedocumented in this encounter Care Teams Underwriter Mortgage Loan Relationship Specialty Start Date End Date Missael Gonzalez MD [facility] [place] [address] PCP - General 10/12/17 documented as of this encounter
--- OUTSIDE RECORDS SUMMARY | 2024-08-14 12:47 | XMS_ITS | Encounter Summary ---
Author Organization [facility] Address [address] [place] [address] Phone Care Team Providers Care Slip Presser Name Role Phone Missael Gonzalez MD Primary Care Provider [phone] Encounter Details Date Type Department Care Team (Late st Contact Info) Description 07/30/2010 Documentation [facility] [place] [address] [place], [place] [phone] Family Medicine, Physician [address] [place], [place] [address] Social History Tobacco Use Types Packs/Day Years [...] on filedocumented in this encounter Care Teams Slip Presser Relationship Specialty Start Date End Date Missael Gonzalez MD [address] [place] [address] [place] [address] PCP - General 10/12/17 documented as of this encounter
--- OUTSIDE RECORDS SUMMARY | 2024-08-14 12:47 | XMS_ITS | Encounter Summary ---
Author Organization [facility] Address [address] [place] [address] Phone Care Team Providers Care Phone Engineer Name Role Phone Missael Gonzalez MD Primary Care Provider [phone] Encounter Details Date Type Department Care Team (Late st Contact Info) Description 06/19/2015 Documentation [facility] [place] [address] [place] [address] Family Medicine, Physician [address] [place], [place] 220[address] Social History Tobacco Use Types Packs/Day Years [...] on filedocumented in this encounter Care Teams Phone Engineer Relationship Specialty Start Date End Date Missael Gonzalez MD [address] [place] [address] [place] [address] PCP - General 10/12/17 documented as of this encounter
--- OUTSIDE RECORDS SUMMARY | 2024-08-14 12:47 | XMS_ITS | Encounter Summary ---
Author Organization [facility] Address [address] [place] [address] Phone Care Team Providers Care Green Plumber Name Role Phone Missael Gonzalez MD Primary Care Provider [phone] Encounter Details Date Type Department Care Team (Late st Contact Info) Description 07/30/2010 Consult [facility] Medicine [address] [place] [address] Family Medicine, Physician [address] [place], [place] [address] Social History Tobacco Use Types Packs/Day Years [...] on filedocumented in this encounter Care Teams Green Plumber Relationship Specialty Start Date End Date Missael Gonzalez MD [address] [place] [address] [place] [address] PCP - General 10/12/17 documented as of this encounter
--- OUTSIDE RECORDS SUMMARY | 2024-08-14 12:47 | XMS_ITS | Encounter Summary ---
Author Organization [facility] Address [address] [place] [address] Phone Care Team Providers Care Materials Analyst Name Role Phone Missael Gonzalez MD Primary Care Provider [phone] Encounter Details Date Type Department Care Team (Late st Contact Info) Description 05/05/2012 Lab [facility] Family Medicine [address] [place] [address] Family Medicine, Physician [address] [place], [place] [id number] Social History Tobacco Use Types Packs/Day Years [...] on filedocumented in this encounter Care Teams Materials Analyst Relationship Specialty Start Date End Date Missael Gonzalez MD [address] [place] [address] [place] [address] PCP - General 10/12/17 documented as of this encounter
--- OUTSIDE RECORDS SUMMARY | 2024-08-14 12:47 | XMS_ITS | Encounter Summary ---
Author Organization [facility] Address [address] [place] [address] Phone Care Team Providers Care Veterinary Laboratory Technician Name Role Phone Missael Gonzalez MD Primary Care Provider [phone] Encounter Details Date Type Department Care Team (Late st Contact Info) Description 08/01/2013 Documentation [facility] [place] Family Medicine [address] [place], [place] [address] Family Medicine, Physician [address] [place], [place] [address] Social History Tobacco Use Types Packs/Day Years [...] on filedocumented in this encounter Care Teams Veterinary Laboratory Technician Relationship Specialty Start Date End Date Missael Gonzalez MD [address] [place] [address] [place] [address] PCP - General 10/12/17 documented as of this encounter
--- OUTSIDE RECORDS SUMMARY | 2024-08-14 12:47 | XMS_ITS | Encounter Summary ---
Author Organization [facility] Address [address] [place] [address] Phone Care Team Providers Care Ballpoint Pen Cartridge Tester Name Role Phone Missael Gonzalez MD Primary Care Provider [phone] Encounter Details Date Type Department Care Team (Late st Contact Info) Description 08/12/2010 Documentation [facility] [place] [address] [place] [address] Family Medicine, Physician [address] [place], [place] 240661 Social History Tobacco Use Types Packs/Day Years [...] on filedocumented in this encounter Care Teams Ballpoint Pen Cartridge Tester Relationship Specialty Start Date End Date Missael Gonzalez MD [address] [place] [address] [place] [address] PCP - General 10/12/17 documented as of this encounter
--- OUTSIDE RECORDS SUMMARY | 2024-08-14 12:47 | XMS_ITS | Encounter Summary ---
Author Organization [facility] Address [address] [place] [address] Phone Care Team Providers Care Auto Radiator Mechanic Name Role Phone Missael Gonzalez MD Primary Care Provider [phone] Encounter Details Date Type Department Care Team (Late st Contact Info) Description 08/14/2016 Documentation [facility] [place] Family Medicine [address] [place] [address] Family Medicine, Physician [address] [place], [place] [address] Social History Tobacco Use Types Packs/Day Years [...] on filedocumented in this encounter Care Teams Auto Radiator Mechanic Relationship Specialty Start Date End Date Missael Gonzalez MD [address] [place] [address] [place] [address] PCP - General 10/12/17 documented as of this encounter
--- OUTSIDE RECORDS SUMMARY | 2024-08-14 12:47 | XMS_ITS | Encounter Summary ---
Author Organization [facility] Address [address] [place] [address] Phone Care Team Providers Care Pediatric Dietician Name Role Phone Missael Gonzalez MD Primary Care Provider [phone] Encounter Details Date Type Department Care Team (Late st Contact Info) Description 09/18/2015 Documentation [facility] [place] Family Medicine [address] [place] [address] Family Medicine, Physician [address] [place], [place] 517201 Social History Tobacco Use Types Packs/Day Years [...] on filedocumented in this encounter Care Teams Pediatric Dietician Relationship Specialty Start Date End Date Missael Gonzalez MD [address] [place] [address] [place] [address] PCP - General 10/12/17 documented as of this encounter
--- OUTSIDE RECORDS SUMMARY | 2024-08-14 12:47 | XMS_ITS | Encounter Summary ---
Author Organization [facility] Address [address] [place] [address] Phone Care Team Providers Care Lead Shipper Name Role Phone Missael Gonzalez MD Primary Care Provider [phone] Encounter Details Date Type Department Care Team (Late st Contact Info) Description 09/20/2014 Documentation [facility] [place] [address] [place] [address] Family Medicine, Physician [address] [place], [place] 494051 Social History Tobacco Use Types Packs/Day Years [...] on filedocumented in this encounter Care Teams Lead Shipper Relationship Specialty Start Date End Date Missael Gonzalez MD [address] [place] [address] [place] [address] PCP - General 10/12/17 documented as of this encounter
--- OUTSIDE RECORDS SUMMARY | 2024-08-14 12:47 | XMS_ITS | Encounter Summary ---
Author Organization [facility] Address [address] [place] [address] Phone Care Team Providers Care Network Associate Name Role Phone Missael Gonzalez MD Primary Care Provider [phone] Encounter Details Date Type Department Care Team (Late st Contact Info) Description 07/30/2010 Documentation [facility] [place] [address] [place], [place] [phone] Family Medicine, Physician [address] [place], [place] [address] Social History Tobacco Use Types Packs/Day Years [...] on filedocumented in this encounter Care Teams Network Associate Relationship Specialty Start Date End Date Missael Gonzalez MD [address] [place] [address] [place] [address] PCP - General 10/12/17 documented as of this encounter
--- OUTSIDE RECORDS SUMMARY | 2024-08-14 12:47 | XMS_ITS | Encounter Summary ---
Author Organization [facility] Address [address] [place] [address] Phone Care Team Providers Care Security Installation Sales Technician Name Role Phone Missael Gonzalez MD Primary Care Provider [phone] Encounter Details Date Type Department Care Team (Late st Contact Info) Description 07/30/2010 Documentation [facility] [place] [address] [place], [place] [phone] Family Medicine, Physician [address] [place], [place] [address] Social History Tobacco Use Types Packs/Day Years [...] on filedocumented in this encounter Care Teams Security Installation Sales Technician Relationship Specialty Start Date End Date Missael Gonzalez MD [address] [place] [address] [place] [address] PCP - General 10/12/17 documented as of this encounter
--- OUTSIDE RECORDS SUMMARY | 2024-08-14 12:47 | XMS_ITS | Encounter Summary ---
Author Organization [facility] Address [address] [place] [address] Phone Care Team Providers Care Sales Apprentice Name Role Phone Missael Gonzalez MD Primary Care Provider [phone] Encounter Details Date Type Department Care Team (Late st Contact Info) Description 09/07/2010 Documentation [facility] [place] [address] [place] [address] Family Medicine, Physician [address] [place], [place] [address] Social History Tobacco Use Types Packs/Day Years [...] on filedocumented in this encounter Care Teams Sales Apprentice Relationship Specialty Start Date End Date Missael Gonzalez MD [address] [place] [address] [place] [address] PCP - General 10/12/17 documented as of this encounter
--- OUTSIDE RECORDS SUMMARY | 2024-08-14 12:47 | XMS_ITS | Encounter Summary ---
Author Organization [facility] Address [address] [place] [address] Phone Care Team Providers Care Barbecue Cook Name Role Phone Missael Gonzalez MD Primary Care Provider [phone] Encounter Details Date Type Department Care Team (Late st Contact Info) Description 08/11/2015 Documentation [facility] [place] [address] [place] [address] Family Medicine, Physician [address] [place], [place] 395461 Social History Tobacco Use Types Packs/Day Years [...] on filedocumented in this encounter Care Teams Barbecue Cook Relationship Specialty Start Date End Date Missael Gonzalez MD [address] [place] [address] [place] [address] PCP - General 10/12/17 documented as of this encounter
--- OUTSIDE RECORDS SUMMARY | 2024-08-14 12:47 | XMS_ITS | Encounter Summary ---
Author Organization [facility] Address [address] [place] [address] Phone Care Team Providers Care Visual Merchandising Specialist Name Role Phone Missael Gonzalez MD Primary Care Provider [phone] Encounter Details Date Type Department Care Team (Late st Contact Info) Description 09/07/2010 Documentation [facility] [place] [address] [place] [address] Family Medicine, Physician [address] [place], [place] [address] Social History Tobacco Use Types Packs/Day Years [...] on filedocumented in this encounter Care Teams Visual Merchandising Specialist Relationship Specialty Start Date End Date Missael Gonzalez MD [address] [place] [address] [place] [address] PCP - General 10/12/17 documented as of this encounter
--- OUTSIDE RECORDS SUMMARY | 2024-08-14 12:47 | XMS_ITS | Encounter Summary ---
Author Organization [facility] Address [address] [place] [address] Phone Care Team Providers Care Diesel Pile Hammer Operator Name Role Phone Missael Gonzalez MD Primary Care Provider [phone] Encounter Details Date Type Department Care Team (Late st Contact Info) Description 09/06/2017 Documentation [facility] [place] Medicine [address] [place] [address] Family Medicine, Physician [address] [place], [place] [address]64[address] Social History Tobacco Use Types Packs/Day Years [...] on filedocumented in this encounter Care Teams Diesel Pile Hammer Operator Relationship Specialty Start Date End Date Missael Gonzalez MD [address] [place] [address] [place] [address] PCP - General 10/12/17 documented as of this encounter
--- OUTSIDE RECORDS SUMMARY | 2024-08-14 12:47 | XMS_ITS | Encounter Summary ---
Author Organization [facility] Address [address] [place] [address] Phone Care Team Providers Care Electronic System Engineer Name Role Phone Missael Gonzalez MD Primary Care Provider [phone] Encounter Details Date Type Department Care Team (Late st Contact Info) Description 08/14/2016 Medication Management [facility] [place] Family Medicine [address] [place] [address] Family Medicine, Physician [address] [place], [place] [address]871 Social History Tobacco Use Types Packs/Day Years [...] on filedocumented in this encounter Care Teams Electronic System Engineer Relationship Specialty Start Date End Date Missael Gonzalez MD [facility] [facility] [place] [address] PCP - General 10/12/17 documented as of this encounter
--- OUTSIDE RECORDS SUMMARY | 2024-08-14 12:47 | XMS_ITS | Encounter Summary ---
Author Organization [facility] Address [address] [place] [address] Phone Care Team Providers Care Motor Vehicle Light Assembler Name Role Phone Missael Gonzalez MD Primary Care Provider [phone] Encounter Details Date Type Department Care Team (Late st Contact Info) Description 02/25/2015 Medication Management [facility] [place] Family [place] [address] [place] [address] Family Medicine, Physician [address] [place], [place] [address] Social History Tobacco Use Types Packs/Day Years [...] on filedocumented in this encounter Care Teams Motor Vehicle Light Assembler Relationship Specialty Start Date End Date Missael Gonzalez MD [facility] [place] [address] PCP - General 10/12/17 documented as of this encounter
--- OUTSIDE RECORDS SUMMARY | 2024-08-14 12:47 | XMS_ITS | Clinical Summary ---
Author Organization [facility] Address [address] [place] [address] Phone Care Team Providers Care Citizenship Instructor Name Role Phone Missael Gonzalez MD Primary Care Provider [phone] Allergies No known active allergies Medications No known medications Active Problems Problem Noted Date Diagnosed Date Obesity 08/11/2020 Assessment & Plan (08/11/2020 8:55 AM EST): Discussed how to eat properly. Stop snacking, stop eating at [employer]. Eat granola bars. Attention deficit disorder with hyperactivity Overview (07/16/2019): Attention deficit hyperactivity disorder (314.01) Onset: 05/02/2012 Added by: Kat Spivey Immunizations Immunization Administration Dates Next Due DTaP 5 09/11/2001, 8,02/06/1997,12/03,1996 H1N1 Inj 05/06/2009 HPV Vaccine 9 Valent 08/13/2016,08/11/2015 HPV, Quadrivalent 08/09/2014 Hep B, ped/adol 02/06/1997,1996,1996 Hib (PRP-T) 07/08/1997, 7,1996,10/01 IPV 09/11/2001 Influenza, injectable, quadrivalent 07/16/2019 Influenza, injectable, quadr ivalent, preservative free 08/11/2015 Influenza, injectable, trivalent 015,07/31/2013,02/23/2011,03/14,03/05/2009 Influenza, injectable, triva lent, preservative free 05/02/2012 MMR 09/11/2001,01/10/1998 Meningococcal Conj (Menactra) MCV4P 08/09/2014,0 09/02/2008 OPV 02/06/1997,1996,1996 Tdap 07/16/2019,09/02/2008 Varicella 09/02/2008,01/10/1998 Family History Medical History Relation Name Comments No Known Problems Father Lorenzo No Known Problems Mother Lexie Relation Name Status Comments Father Lorenzo Alive Mother Lexie Alive Sister Nicole Alive Social History Tobacco Use Types Packs/Day Years Used Date Smoking Tobacco: Never Assessed Sex and Gender Information Value Date Recorded Sex Assigned at Not on file Legal Sex Male 6:25 PM EDT Gender Identity Not on file Sexual Orientation Not on file Last Filed Vital Signs Vital Sign Reading Time Taken Comments Blood Pressure 108/80 08/11/2020 8:22 AM EST Pulse 70 08/11/2020 8:22 AM EST Temperature 37.1 ??C (98.7 ??F) 12/31/2020 10:00 AM E DT Respiratory Rate - - Oxygen Saturation - - Inhaled Oxygen Concentration - - Weight 116 kg (255 lb 8 oz) 08/11/2020 8:[address] Height 171 cm (5' 7.32 ) 08/11/2020 8:22 AM EST Body Mass Index 39.63 08/11/2020 8:22 AM EST Plan of Treatment Health Maintenance Due Date Last Done Comments Influenza Vaccines (#1) 2024 07/16/19 20, 08/11/2015, 08/09/2014, Additional history exists COVID-19 Vaccine ( - season) 2024 DTaP,Tdap,and Td Vaccines (7 - Td or Tdap) 07/16/2029 07/16/2019, 09/02/2008, 09/11/2001, Additional history exists Hepatitis B Vaccines Completed 02/06/1997, 1996, 1996 HIB Vaccines Aged Out 07/08/1997, 08/1996, 1996, Additional history exists No longer eligible based on patient's age to complete this topic IPV Vaccines Completed 09/11/2001, 08/1996, 1996, Additional history exists MMR Vaccines Completed 09/11/2001, 01/10/1998 Varicella Vaccines Completed 09/02/2008, 01/10/1998 Meningococcal Vaccine Completed 08/09/2014, 009 HPV Vaccines Completed 08/13/2016, 12/2015, 08/09/2014 Hepatitis A Vaccines Aged Out No long er eligible based on patient's age to complete this topic Men B Vaccine Aged Out No longer elig ible based on patient's age to complete this topic Pneumococcal Vaccine Aged Out No long er eligible based on patient's age to complete this topic Insurance [facility] PUBLIC DIRECT [facility] PUBLIC DIRECT Care Teams Citizenship Instructor Relationship Specialty Start Date End Date Missael Gonzalez MD [address] [place] [address] [place] [address] PCP - General 10/12/17
--- OUTSIDE RECORDS SUMMARY | 2024-08-14 12:47 | XMS_ITS | Encounter Summary ---
Author Organization [facility] Address [address] [place] [address] Phone Care Team Providers Care Respiratory Support Technician Name Role Phone Missael Gonzalez MD Primary Care Provider [phone] Encounter Details Date Type Department Care Team (Late st Contact Info) Description 07/30/2010 Documentation [facility] [address] [place], [place] [phone] Family Medicine, Physician [address] [place], [place] [address] Social History Tobacco Use Types Packs/Day Years [...] on filedocumented in this encounter Care Teams Respiratory Support Technician Relationship Specialty Start Date End Date Missael Gonzalez MD [address] [place] [address] [place] [address] PCP - General 10/12/17 documented as of this encounter
--- OUTSIDE RECORDS SUMMARY | 2024-08-14 12:47 | XMS_ITS | Encounter Summary ---
Author Organization [facility] Address [address] [place] [address] Phone Care Team Providers Care Case Coordinator Name Role Phone Missael Gonzalez MD Primary Care Provider Encounter Details Date Type Department Care Team (Late st Contact Info) Description 07/31/2010 Conversion Encounter [facility] [address] [place] [address] [place] [address] Social History Tobacco Use Types Packs/Day Years [...] on filedocumented in this encounter Care Teams Case Coordinator Relationship Specialty Start Date End Date Missael Gonzalez MD [address] [place] [address] [place] [address] PCP - General 10/12/17 documented as of this encounter
--- OUTSIDE RECORDS SUMMARY | 2024-08-14 12:47 | XMS_ITS | Encounter Summary ---
Author Organization [facility] Address [address] [place] [address] Phone Care Team Providers Care Rn Womens Health Name Role Phone Missael Gonzalez MD Primary Care Provider Encounter Details Date Type Department Care Team (Late st Contact Info) Description 08/01/2013 Documentation [facility] [place] Family [place] [address] [place], [place] [id number] Family Medicine, Physician [address] [place], [place] [address]321 Social History Tobacco Use Types Packs/Day Years [...] on filedocumented in this encounter Care Teams Rn Womens Health Relationship Specialty Start Date End Date Missael Gonzalez MD [address] [place] [address] [place] [address] PCP - General 10/12/17 documented as of this encounter
--- OUTSIDE RECORDS SUMMARY | 2024-08-14 12:47 | XMS_ITS | Encounter Summary ---
Author Organization [facility] Address [address] [place] [address] Phone Care Team Providers Care Printed Circuit Boards Pinner Name Role Phone Missael Gonzalez MD Primary Care Provider [phone] Encounter Details Date Type Department Care Team (Late st Contact Info) Description 07/30/2010 [facility] [address] [place] [address] Family Medicine, Physician [address] [place], [place] [id number] Social History Tobacco Use Types Packs/Day Years [...] on filedocumented in this encounter Care Teams Printed Circuit Boards Pinner Relationship Specialty Start Date End Date Missael Gonzalez MD [address] [place] [address] [place] [address] PCP - General 10/12/17 documented as of this encounter
--- OUTSIDE RECORDS SUMMARY | 2024-08-14 12:47 | XMS_ITS | Encounter Summary ---
Author Organization [facility] Address [address] [place] [address] Phone Care Team Providers Care Draw Operator Name Role Phone Missael Gonzalez MD Primary Care Provider [phone] Encounter Details Date Type Department Care Team (Late st Contact Info) Description 08/12/2014 Medication Management [facility] [place] [address] [place] [address] Family Medicine, Physician [address] [place], [place] 778461 Social History Tobacco Use Types Packs/Day Years [...] on filedocumented in this encounter Care Teams Draw Operator Relationship Specialty Start Date End Date Missael Gonzalez MD [facility] [place] [address] PCP - General 10/12/17 documented as of this encounter
--- OUTSIDE RECORDS SUMMARY | 2024-08-14 12:47 | XMS_ITS | Encounter Summary ---
Author Organization [facility] Address [address] [place] [address] Phone Care Team Providers Care Naval Aircrewman Mechanical Name Role Phone Missael Gonzalez MD Primary Care Provider [phone] Encounter Details Date Type Department Care Team (Late st Contact Info) Description 07/30/2010 Documentation [facility] [place] [address] [place], [place] [phone] Family Medicine, Physician [address] [place], [place] 977071 Social History Tobacco Use Types Packs/Day Years [...] on filedocumented in this encounter Care Teams Naval Aircrewman Mechanical Relationship Specialty Start Date End Date Missael Gonzalez MD [address] [place] [address] [place] [address] PCP - General 10/12/17 documented as of this encounter
== END 2024-08-14 11:17 | disposition home or self-care (01) ==
LOC: HO.HMCSH 10:39
PROVIDERS: PCP Internal Medicine; Visit Provider Physician Assistant Medical
DX: J45.909 Unspecified asthma, uncomplicated (principal); I10 Essential (primary) hypertension; I83.819 Varicose veins of unspecified lower extremity with pain; Z76.89 Persons encountering health services in other specified circumstances; E66.01 Morbid (severe) obesity due to excess calories; Z68.41 Body mass index [BMI] 40.0-44.9, adult

== ENCOUNTER 2024-09-04 08:49 | Outpatient (AMB) | payer OTHER, SELFPAY ==
--- NOTE | 2024-09-04 09:01 | A.OFFVIS_ITS ---
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 No pain , swelling or cramping. Noticed varicose veins about four months ago. 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 He states that appx 3-4m ago he noticed them popping out in his right lower extremity and over the last 1-2 months they have been more prominent. Complaints include varicosities, swelling of lower extremities, cramping, fatigue, and heaviness of the lower extremities, worse after work. It has been affecting their daily activities including working and physical activity. It is noted in bilateral legs. He is a nonsmoker and a prediabetic. He does stand at his job for 7-8 hours a day. Patient denies any previous venous surgery or injections. Patient denies any history of DVT/ PE. Patient denies any history of phlebitis. Trial of compression includes - nothing currently They now present for vascular evaluation regarding their varicose veins. [facility] Medical History Hyperlipidemia Prediabetes Morbid obesity with BMI of 40.0-44.9, adult Establishing care with new doctor, encounter for Varicose veins with pain Hypertension Asthma Family History Mother Mandeep's disease Social History Housing: Apartment Alcohol intake: never Patient Tobacco Use Status: Never used Tobacco service: No Current occupational status: employed Cognitive needs: No Hearing needs: No Vision needs: Yes Review of Systems Const Reports as per HPI and Denies weakness ENT Reports Normal hearing present and Denies dizziness Card Reports as per HPI, Denies chest pain, Denies chest pain at rest, Denies chest pain with activity, Denies dyspnea and Denies dyspnea on exertion Resp Reports as per HPI, Denies cough, Denies dyspnea and Denies dyspnea on exertion GI Reports as per HPI, Denies abdominal pain, Denies nausea and Denies vomiting Musc Denies numbness Skin/Breast Reports as per HPI, Denies erythema and Denies wounds Neuro Reports Normal hearing present, Denies dizziness, Denies numbness, Denies Sensory deficit (Neuro) and Denies weakness Psych Reports no additional complaints Endo Reports no additional complaints Physical Exam Const General: healthy appearing and no acute distress Orientation/consciousness: patient oriented x3 HEENT Head: Yes normal to inspection Ears: hearing grossly normal bilaterally Mouth: Normal oral and palatal mucosa present Resp Effort & Inspection: normal respiratory effort and able to speak in complete sentences Auscultation: clear to auscultation bilaterally Cardio Jugular venous distension: no JVD Rate: regular rate Rhythm: regular rhythm Heart sounds: S1 normal heart sound present and S2 normal heart sound present Bruits: no abdominal aortic bruits, no carotid bruits, no femoral bruits and no renal bruits Peripheral pulses: Peripheral pulses 2+ throughout GI Inspection: Yes normal to inspection Palpation (GI): No Abdominal aortic bruit present Skin General skin exam: no rashes or lesions noted Wounds: no wounds Hair: normal Neuro General: patient oriented x3 Cranial nerves: Yes Normal hearing present Cognition (Neuro): normal cognition Gait exam (Neuro): Normal gait present Motor exam (neuro): 5/5 motor strength present throughout Sensory Exam: No Sensory deficit (Neuro) Extrem Other: Right lower extremity: small rope-like varicosities noted behind the knee, not painful to palpation, largest one measuring appx 3cm. Bilateral lower extremities: trace peripheral edema noted. CEAP: C - 3 E - primary A - superficial P - reflux General: Yes normal to inspection, Yes full ROM, Yes capillary refill normal and Yes normal gait Assessment & Plan Assessment & Plan (1) Varicose veins of both lower extremities with inflammation: Code(s): I83.11 - Varicose veins of right lower extremity with inflammation; I83.12 - Varicose veins of left lower extremity with inflammation Category: Medical Plan: Lorenzo is presenting today on a referral from his PCP for concerns of varicose veins. In short, the patient has evidence of venous insufficiency. I have discussed the pathophysiology with the patient. In addition I have provided informational material regarding venous disease to the patient. We have discussed conservative measures including compression, elevation, and exercise. We were able to provide him with compression socks, I discussed the importance of wearing them for at least 8h a day and particularly when he is working. I have taken the liberty of ordering venous insufficiency testing with the patient. They will follow up with me after testing. The patient had an opportunity to ask questions regarding the treatment plan. All questions were answered. Imaging studies, laboratory studies and physical exam results were discussed and reviewed in detail. No major barriers to understanding were identified. The patient expressed understanding and agreement with the above treatment plan. The patient is aware they should contact our office by phone for worsening of the current condition or the appearance of new symptoms. Thank you for allowing me to participate in the vascular care of this patient. If you have any questions or concerns regarding the treatment for the above condition please do not hesitate to contact me. The office telephone contact is [phone]. This note is constructed using voice recognition software. While every effort has been made to ensure accuracy, pre billing specialist errors may have been included. Thank you for allowing me to participate in the care of your patient. Yours sincerely, BILLY Montejo Orders: Orders US venous duplex LE BI 1 Week I83.11 - Varicose veins of right lower extremity with inflammation, I83.12 - Varicose veins of left lower extremity with inflammation Coding Level of Care Code New Pt Level 4 (50835) Diagnoses Varicose veins of both lower extremities with inflammation I83.11; I83.12
--- OUTSIDE RECORDS SUMMARY | 2024-09-04 09:18 | XMS_ITS | Clinical Summary ---
Author Organization [facility] Address [address] [place] [address] Phone Care Team Providers Care Pharmaceutical Operator Name Role Phone Missael Gonzalez MD Primary Care Provider [phone] Allergies No known active allergies Medications No [...] patient's age to complete this topic Insurance [facility] PUBLIC DIRECT [facility] PUBLIC DIRECT Care Teams Pharmaceutical Operator Relationship Specialty Start Date End Date Missael Gonzalez MD [address] [place] [address] [place] [address] PCP - General 10/12/17
--- OUTSIDE RECORDS SUMMARY | 2024-09-04 09:18 | XMS_ITS | Encounter Summary ---
Author Organization [facility] Address [address] [place] [address] Phone Care Team Providers Care Inspection Manager Name Role Phone Missael Gonzalez MD Primary Care Provider [phone] Encounter Details Date Type Department Care Team (Late st Contact Info) Description 05/05/2012 Lab [facility] [address] [place] [address] Family Medicine, Physician [address] [place], [place] [id number] Social History Tobacco Use Types Packs/Day Years [...] on filedocumented in this encounter Care Teams Inspection Manager Relationship Specialty Start Date End Date Missael Gnozalez MD [address] [place] [address] [place] [address] PCP - General 10/12/17 documented as of this encounter
--- OUTSIDE RECORDS SUMMARY | 2024-09-04 09:18 | XMS_ITS | Encounter Summary ---
Author Organization [facility] Address [address] [place] [address] Phone Care Team Providers Care Industrial Furnace Fabricator Name Role Phone Missael Gonzalez MD Primary Care Provider [phone] Encounter Details Date Type Department Care Team (Late st Contact Info) Description 06/20/2017 Medication Management [facility] [place] Family Medicine [address] [place] [address] Family Medicine, Physician [address] [place] [address] Social History Tobacco Use Types Packs/Day Years [...] on filedocumented in this encounter Care Teams Industrial Furnace Fabricator Relationship Specialty Start Date End Date Missael Gonzalez MD [facility] [facility] [place] [address] PCP - General 10/12/17 documented as of this encounter
--- OUTSIDE RECORDS SUMMARY | 2024-09-04 09:18 | XMS_ITS | Encounter Summary ---
Author Organization [facility] Address [address] [place] [address] Phone Care Team Providers Care Patent Counsel Name Role Phone Missael Gonzalez MD Primary Care Provider [phone] Encounter Details Date Type Department Care Team (Late st Contact Info) Description 07/30/2010 [facility] [address] [place] [address] Family Medicine, Physician [address] [place], [place] [id number] Social History Tobacco Use Types Packs/Day Years [...] filedocumented in this encounter Care Teams Patent Counsel Relationship Specialty Start Date End Date Missael Gonzalez MD [facility] [place] [address] PCP - General 10/12/17 documented as of this encounter
--- OUTSIDE RECORDS SUMMARY | 2024-09-04 09:18 | XMS_ITS | Encounter Summary ---
Author Organization [facility] Address [address] [place] [address] Phone Care Team Providers Care Molasses Preparer Name Role Phone Missael Gonzalez MD Primary Care Provider [phone] Encounter Details Date Type Department Care Team (Late st Contact Info) Description 08/12/2010 Documentation [facility] [place] Family Medicine [address] [place] [address] Family Medicine, Physician [address] [place], [place] 118141 Social History Tobacco Use Types Packs/Day Years [...] on filedocumented in this encounter Care Teams Molasses Preparer Relationship Specialty Start Date End Date Missael Gonzalez MD [facility] [place] [address] PCP - General 10/12/17 documented as of this encounter
--- OUTSIDE RECORDS SUMMARY | 2024-09-04 09:18 | XMS_ITS | Encounter Summary ---
Author Organization [facility] Address [address] [place] [address] Phone Care Team Providers Care Sheet Metal Duct Installer Apprentice Name Role Phone Missael Gonzalez MD Primary Care Provider [phone] Encounter Details Date Type Department Care Team (Late st Contact Info) Description 07/30/2010 Documentation [facility] [place] Family Medicine [address] [place], [place] [id number] Family Medicine, Physician [address] [place], [place] 494251 Social History Tobacco Use Types Packs/Day Years [...] on filedocumented in this encounter Care Teams Sheet Metal Duct Installer Apprentice Relationship Specialty Start Date End Date Missael Gonzalez MD [address] [place] [address] [place] [address] PCP - General 10/12/17 documented as of this encounter
--- OUTSIDE RECORDS SUMMARY | 2024-09-04 09:18 | XMS_ITS | Encounter Summary ---
Author Organization [facility] Address [address] [place] [address] Phone Care Team Providers Care Civil Engineering Intern Name Role Phone Missael Gonzalez MD Primary Care Provider [phone] Encounter Details Date Type Department Care Team (Late st Contact Info) Description 08/24/2010 Documentation [facility] [place] [address] [place], [place] [phone] Family Medicine, Physician [address] [place], [place] 320321 Social History Tobacco Use Types Packs/Day Years [...] on filedocumented in this encounter Care Teams Civil Engineering Intern Relationship Specialty Start Date End Date Missael Gonzalez MD [address] [place] [address] [place] [address] PCP - General 10/12/17 documented as of this encounter
--- OUTSIDE RECORDS SUMMARY | 2024-09-04 09:18 | XMS_ITS | Encounter Summary ---
Author Organization [facility] Address [address] [place] [address] Phone Care Team Providers Care Hvac Service Technician Name Role Phone Missael Gonzalez MD Primary Care Provider [phone] Encounter Details Date Type Department Care Team (Late st Contact Info) Description 09/01/2010 Documentation [facility] [place] [address] [place] [address] Family Medicine, Physician [address] [place], [place] 072571 Social History Tobacco Use Types Packs/Day Years [...] on filedocumented in this encounter Care Teams Hvac Service Technician Relationship Specialty Start Date End Date Missael Gonzalez MD [facility] [facility] [place] [address] PCP - General 10/12/17 documented as of this encounter
--- OUTSIDE RECORDS SUMMARY | 2024-09-04 09:18 | XMS_ITS | Encounter Summary ---
Author Organization [facility] Address [address] [place] [address] Phone Care Team Providers Care Coach Wirer Name Role Phone Missael Gonzalez MD Primary Care Provider Encounter Details Date Type Department Care Team (Late st Contact Info) Description 08/11/2015 Documentation [facility] [place] [address] [place] [address] Family Medicine, Physician [address] [place], [place] 943721 Social History Tobacco Use Types Packs/Day Years [...] on filedocumented in this encounter Care Teams Coach Wirer Relationship Specialty Start Date End Date Missael Gonzalez MD [address] [place] [address] [place] [address] PCP - General 10/12/17 documented as of this encounter
--- OUTSIDE RECORDS SUMMARY | 2024-09-04 09:18 | XMS_ITS | Encounter Summary ---
Author Organization [facility] Address [address] [place] [address] Phone Care Team Providers Care Vice President Underwriting Name Role Phone Missael Gonzalez MD Primary Care Provider [phone] Encounter Details Date Type Department Care Team (Late st Contact Info) Description 08/18/2010 Documentation [facility] [place] [address] [place] [address] Family Medicine, Physician [address] [place], [place] 869791 Social History Tobacco Use Types Packs/Day Years [...] on filedocumented in this encounter Care Teams Vice President Underwriting Relationship Specialty Start Date End Date Missael Gonzalez MD [facility]6 [facility] [place] [address] PCP - General 10/12/17 documented as of this encounter
--- OUTSIDE RECORDS SUMMARY | 2024-09-04 09:18 | XMS_ITS | Encounter Summary ---
Author Organization [facility] Address [address] [place] [address] Phone Care Team Providers Care Transcription Name Role Phone Missael Gonzalez MD Primary Care Provider [phone] Encounter Details Date Type Department Care Team (Late st Contact Info) Description 08/11/2015 Medication Management [facility] [address] [place] [address] Family Medicine, Physician [address] [place], [place] 539141 Social History Tobacco Use Types Packs/Day Years [...] on filedocumented in this encounter Care Teams Transcription Relationship Specialty Start Date End Date Missael Gonzalez MD [facility]6 [facility] [place] [address] PCP - General 10/12/17 documented as of this encounter
--- OUTSIDE RECORDS SUMMARY | 2024-09-04 09:18 | XMS_ITS | Encounter Summary ---
Author Organization [facility] Address [address] [place] [address] Phone Care Team Providers Care Senior Net Programmer Name Role Phone Missael Gonzalez MD Primary Care Provider [phone] Encounter Details Date Type Department Care Team (Late st Contact Info) Description 07/20/2011 Medication Management [facility] [place] [address] [place] [address] Family Medicine, Physician [address] [place] [address] Social History Tobacco Use Types Packs/Day Years [...] filedocumented in this encounter Care Teams Senior Net Programmer Relationship Specialty Start Date End Date Missael Gonzalez MD [facility] [facility] [address] PCP - General 10/12/17 documented as of this encounter
--- OUTSIDE RECORDS SUMMARY | 2024-09-04 09:18 | XMS_ITS | Encounter Summary ---
Author Organization [facility] Address [address] [place] [address] Phone Care Team Providers Care Payroll Processor Name Role Phone Missael Gonzalez MD Primary Care Provider Encounter Details Date Type Department Care Team (Late st Contact Info) Description 08/14/2016 Documentation [facility] [place] [address] [place] [address] Family Medicine, Physician [address] [place], [place] 947391 Social History Tobacco Use Types Packs/Day Years [...] on filedocumented in this encounter Care Teams Payroll Processor Relationship Specialty Start Date End Date Missael Gonzalez MD [address] [place] [address] [place] [address] PCP - General 10/12/17 documented as of this encounter
--- OUTSIDE RECORDS SUMMARY | 2024-09-04 09:18 | XMS_ITS | Encounter Summary ---
Author Organization [facility] Address [address] [place] [address] Phone Care Team Providers Care Energy Efficiency Specialist Name Role Phone Missael Gonzalez MD Primary Care Provider [phone] Encounter Details Date Type Department Care Team (Late st Contact Info) Description 08/12/2015 [facility] Family [facility] [address] [place] [address] Family Medicine, Physician [address] [place], [place] [phone] Social History Tobacco Use Types Packs/Day Years [...] on filedocumented in this encounter Care Teams Energy Efficiency Specialist Relationship Specialty Start Date End Date Missael Gonzalez MD [facility] [facility] [place] [address] PCP - General 10/12/17 documented as of this encounter
--- OUTSIDE RECORDS SUMMARY | 2024-09-04 09:18 | XMS_ITS | Encounter Summary ---
Author Organization [facility] Address [address] [place] [address] Phone Care Team Providers Care Reading Aide Name Role Phone Missael Gonzalez MD Primary Care Provider [phone] Encounter Details Date Type Department Care Team (Late st Contact Info) Description 08/18/2010 Documentation [facility] [place] Family Medicine [address] [place] [address] Family Medicine, Physician [address] [place], [place] 415681 Social History Tobacco Use Types Packs/Day Years [...] on filedocumented in this encounter Care Teams Reading Aide Relationship Specialty Start Date End Date Missael Gonzalez MD [facility] [place] [address] PCP - General 10/12/17 documented as of this encounter
--- OUTSIDE RECORDS SUMMARY | 2024-09-04 09:18 | XMS_ITS | Encounter Summary ---
Author Organization [facility] Address [address] [place] [address] Phone Care Team Providers Care Account Solutions Analyst Name Role Phone Missael Gonzalez MD Primary Care Provider [phone] Encounter Details Date Type Department Care Team (Late st Contact Info) Description 09/07/2010 Documentation [facility] [place] [address] [place] [address] Family Medicine, Physician [address] [place], [place] 951781 Social History Tobacco Use Types Packs/Day Years [...] on filedocumented in this encounter Care Teams Account Solutions Analyst Relationship Specialty Start Date End Date Missael Gonzalez MD [address] [place] [address] [place] [address] PCP - General 10/12/17 documented as of this encounter
--- OUTSIDE RECORDS SUMMARY | 2024-09-04 09:18 | XMS_ITS | Encounter Summary ---
Author Organization [facility] Address [address] [place] [address] Phone Care Team Providers Care Certified Massage Therapist Name Role Phone Missael Gonzalez MD Primary Care Provider [phone] Encounter Details Date Type Department Care Team (Late st Contact Info) Description 05/12/2012 [facility] [address] [place] [address] Family Medicine, Physician [address] [place], [place] [phone] Social History Tobacco Use Types Packs/Day Years [...] on filedocumented in this encounter Care Teams Certified Massage Therapist Relationship Specialty Start Date End Date Missael Gonzalez MD [address] [place] [address] [place] [address] PCP - General 10/12/17 documented as of this encounter
--- OUTSIDE RECORDS SUMMARY | 2024-09-04 09:18 | XMS_ITS | Encounter Summary ---
Author Organization [facility] Address [address] [place] [address] Phone Care Team Providers Care Experimental Electronics Developer Name Role Phone Missael Gonzalez MD Primary Care Provider [phone] Encounter Details Date Type Department Care Team (Late st Contact Info) Description 07/06/[address] [facility] [place] [address] [place] [address] Family Medicine, Physician [address] [place], [place] [address]27[address] Social History Tobacco Use Types Packs/Day Years [...] on filedocumented in this encounter Care Teams Experimental Electronics Developer Relationship Specialty Start Date End Date Missael Gonzalez MD [address] [place] [address] [place] [address] PCP - General 10/12/17 documented as of this encounter
--- OUTSIDE RECORDS SUMMARY | 2024-09-04 09:18 | XMS_ITS | Encounter Summary ---
Author Organization [facility] Address [address] [place] [address] Phone Care Team Providers Care Edger Runner Name Role Phone Missael Gonzalez MD Primary Care Provider [phone] Encounter Details Date Type Department Care Team (Late st Contact Info) Description 09/07/2010 Documentation [facility] [place] [address] [place] [address] Family Medicine, Physician [address] [place], [place] [address]111 Social History Tobacco Use Types Packs/Day Years [...] on filedocumented in this encounter Care Teams Edger Runner Relationship Specialty Start Date End Date Missael Gonzalez MD [address] [place] [address] [place] [address] PCP - General 10/12/17 documented as of this encounter
--- OUTSIDE RECORDS SUMMARY | 2024-09-04 09:18 | XMS_ITS | Encounter Summary ---
Author Organization [facility] Address [address] [place] [address] Phone Care Team Providers Care Front End Loader Operator Name Role Phone Missael Gonzalez MD Primary Care Provider [phone] Encounter Details Date Type Department Care Team (Late st Contact Info) Description 09/18/2015 Documentation [facility] [place] Family Medicine [address] [place] [address] Family Medicine, Physician [address] [place], [place] 522781 Social History Tobacco Use Types Packs/Day Years [...] on filedocumented in this encounter Care Teams Front End Loader Operator Relationship Specialty Start Date End Date Missael Gonzalez MD [address] [place] [address] [place] [address] PCP - General 10/12/17 documented as of this encounter
--- OUTSIDE RECORDS SUMMARY | 2024-09-04 09:18 | XMS_ITS | Encounter Summary ---
Author Organization [facility] Address [address] [place] [address] Phone Care Team Providers Care Iron Worker Apprentice Name Role Phone Missael Gonzalez MD Primary Care Provider [phone] Encounter Details Date Type Department Care Team (Late st Contact Info) Description 09/07/2010 [facility] [address] [place] [address] Family Medicine, Physician [address] [place], [place] 336211 Social History Tobacco Use Types Packs/Day Years [...] on filedocumented in this encounter Care Teams Iron Worker Apprentice Relationship Specialty Start Date End Date Missael Gonzalez MD [address] [place] [address] [place] [address] PCP - General 10/12/17 documented as of this encounter
--- OUTSIDE RECORDS SUMMARY | 2024-09-04 09:18 | XMS_ITS | Encounter Summary ---
Author Organization [facility] Address [address] [place] [address] Phone Care Team Providers Care Autistic Teacher Name Role Phone Missael Gonzalez MD Primary Care Provider Encounter Details Date Type Department Care Team (Late st Contact Info) Description 07/31/2010 Conversion Encounter [facility] [address] [place] [address] [place] [address] Social History Tobacco Use Types Packs/Day Years [...] on filedocumented in this encounter Care Teams Autistic Teacher Relationship Specialty Start Date End Date Missael Gonzalez MD [address] [place] [address] [place] [address] PCP - General 10/12/17 documented as of this encounter
--- OUTSIDE RECORDS SUMMARY | 2024-09-04 09:19 | XMS_ITS | Encounter Summary ---
Author Organization [facility] Address [address] [place] [address] Phone Care Team Providers Care Pattern Designer Name Role Phone Missael Gonzalez MD Primary Care Provider Encounter Details Date Type Department Care Team (Late st Contact Info) Description 07/30/2010 Documentation [facility] [place] Family Medicine [address] [place], [place] [address] Family Medicine, Physician [address] [place], [place] 288551 Social History Tobacco Use Types Packs/Day Years [...] on filedocumented in this encounter Care Teams Pattern Designer Relationship Specialty Start Date End Date Missael Gonzalez MD [address] [place] [address] [place] [address] PCP - General 10/12/17 documented as of this encounter
--- OUTSIDE RECORDS SUMMARY | 2024-09-04 09:19 | XMS_ITS | Encounter Summary ---
Author Organization [facility] Address [address] [place] [address] Phone Care Team Providers Care Lab Animal Technologist Name Role Phone Missael Gonzalez MD Primary Care Provider Encounter Details Date Type Department Care Team (Late st Contact Info) Description 09/06/2017 Documentation [facility] [place] Family Medicine [address] [place] [address] Family Medicine, Physician [address] [place], [place] 108141 Social History Tobacco Use Types Packs/Day Years [...] on filedocumented in this encounter Care Teams Lab Animal Technologist Relationship Specialty Start Date End Date Missael Gonzalez MD [address] [place] [address] [place] [address] PCP - General 10/12/17 documented as of this encounter
--- OUTSIDE RECORDS SUMMARY | 2024-09-04 09:19 | XMS_ITS | Encounter Summary ---
Author Organization [facility] Address [address] [place] [address] Phone Care Team Providers Care Cleaner Operator Name Role Phone Missael Gonzalez MD Primary Care Provider [phone] Encounter Details Date Type Department Care Team (Late st Contact Info) Description 09/20/2014 Documentation [facility] [place] [address] [place] [address] Family Medicine, Physician [address] [place], [place] 417861 Social History Tobacco Use Types Packs/Day Years [...] on filedocumented in this encounter Care Teams Cleaner Operator Relationship Specialty Start Date End Date Missael Gonzalez MD [address] [place] [address] [place] [address] PCP - General 10/12/17 documented as of this encounter
--- OUTSIDE RECORDS SUMMARY | 2024-09-04 09:19 | XMS_ITS | Encounter Summary ---
Author Organization [facility] Address [address] [place] [address] Phone Care Team Providers Care Bioinformatics Software Engineer Name Role Phone Missael Gonzalez MD Primary Care Provider [phone] Encounter Details Date Type Department Care Team (Late st Contact Info) Description 07/30/2010 Documentation [facility] [place] [address] [place], [place] [address] Family Medicine, Physician [address] [place], [place] 468251 Social History Tobacco Use Types Packs/Day Years [...] on filedocumented in this encounter Care Teams Bioinformatics Software Engineer Relationship Specialty Start Date End Date Missael Gonzalez MD [address] [place] [address] [place] [address] PCP - General 10/12/17 documented as of this encounter
--- OUTSIDE RECORDS SUMMARY | 2024-09-04 09:19 | XMS_ITS | Encounter Summary ---
Author Organization [facility] Address [address] [place] [address] Phone Care Team Providers Care Family Service Center Director Name Role Phone Missael Gonzalez MD Primary Care Provider [phone] Encounter Details Date Type Department Care Team (Late st Contact Info) Description 08/01/2013 Medication Management [facility] [place] Family Medicine [address] [place] [address] Family Medicine, Physician [address] [place], [place] 374941 Social History Tobacco Use Types Packs/Day Years [...] on filedocumented in this encounter Care Teams Family Service Center Director Relationship Specialty Start Date End Date Missael Gonzalez MD [facility]6 [facility] [place] [address] PCP - General 10/12/17 documented as of this encounter
--- OUTSIDE RECORDS SUMMARY | 2024-09-04 09:19 | XMS_ITS | Encounter Summary ---
Author Organization [facility] Address [address] [place] [address] Phone Care Team Providers Care Excel Analyst Name Role Phone Missael Gonzalez MD Primary Care Provider [phone] Encounter Details Date Type Department Care Team (Late st Contact Info) Description 07/30/2010 Documentation [facility] [place] Medicine [address] [place], [place] 2649[address] Family Medicine, Physician [address] [place], [place] 739831 Social History Tobacco Use Types Packs/Day Years [...] on filedocumented in this encounter Care Teams Excel Analyst Relationship Specialty Start Date End Date Missael Gonzalez MD [address] [place] [address] [place] [address] PCP - General 10/12/17 documented as of this encounter
--- OUTSIDE RECORDS SUMMARY | 2024-09-04 09:19 | XMS_ITS | Encounter Summary ---
Author Organization [facility] Address [address] [place] [address] Phone Care Team Providers Care Bankman Name Role Phone Missael Gonzalez MD Primary Care Provider [phone] Encounter Details Date Type Department Care Team (Late st Contact Info) Description 08/14/2016 Medication Management [facility] [place] Family Medicine [address] [place] [address] Family Medicine, Physician [address] [place], [place] 308471 Social History Tobacco Use Types Packs/Day Years [...] on filedocumented in this encounter Care Teams Bankman Relationship Specialty Start Date End Date Missael Gonzalez MD [facility] [place] [address] PCP - General 10/12/17 documented as of this encounter
--- OUTSIDE RECORDS SUMMARY | 2024-09-04 09:19 | XMS_ITS | Encounter Summary ---
Author Organization [facility] Address [address] [place] [address] Phone Care Team Providers Care Ditching Machine Operating Engineer Name Role Phone Missael Gonzalez MD Primary Care Provider [phone] Encounter Details Date Type Department Care Team (Late st Contact Info) Description 02/25/2015 Medication Management [facility] [place] [address] [place] [address] Family Medicine, Physician [address] [place], [place] [address] Social History Tobacco Use Types Packs/Day Years [...] on filedocumented in this encounter Care Teams Ditching Machine Operating Engineer Relationship Specialty Start Date End Date Missael Gonzalez MD [facility] [facility] [place] [address] PCP - General 10/12/17 documented as of this encounter
--- OUTSIDE RECORDS SUMMARY | 2024-09-04 09:19 | XMS_ITS | Encounter Summary ---
Author Organization [facility] Address [address] [place] [address] Phone Care Team Providers Care Aquatic Laborer Name Role Phone Missael Gonzalez MD Primary Care Provider [phone] Encounter Details Date Type Department Care Team (Late st Contact Info) Description 08/12/2014 Medication Management [facility] [place] [address] [place] [address] Family Medicine, Physician [address], [place] [address] Social History Tobacco Use Types Packs/Day Years [...] on filedocumented in this encounter Care Teams Aquatic Laborer Relationship Specialty Start Date End Date Missael Gonzalez MD [facility] [place] [address] PCP - General 10/12/17 documented as of this encounter
--- OUTSIDE RECORDS SUMMARY | 2024-09-04 09:19 | XMS_ITS | Encounter Summary ---
Author Organization [facility] Address [address] [place] [address] Phone Care Team Providers Care Cheesemaker Name Role Phone Missael Gonzalez MD Primary Care Provider [phone] Encounter Details Date Type Department Care Team (Late st Contact Info) Description 08/13/2014 Lab [facility] Family [facility] [address] [place] [address] Family Medicine, Physician [address] [place], [place] [id number] Social History Tobacco Use Types Packs/Day Years [...] on filedocumented in this encounter Care Teams Cheesemaker Relationship Specialty Start Date End Date Missael Gonzalez MD [address] [place] [address] [place] [address] PCP - General 10/12/17 documented as of this encounter
--- OUTSIDE RECORDS SUMMARY | 2024-09-04 09:19 | XMS_ITS | Encounter Summary ---
Author Organization [facility] Address [address] [place] [address] Phone Care Team Providers Care Compliance Paralegal Name Role Phone Missael Gonzalez MD Primary Care Provider [phone] Encounter Details Date Type Department Care Team (Late st Contact Info) Description 07/30/2010 [facility] [address] [place] [address] Family Medicine, Physician [address] [place], [place] [address] Social History Tobacco Use Types Packs/Day Years [...] on filedocumented in this encounter Care Teams Compliance Paralegal Relationship Specialty Start Date End Date Missael Gonzalez MD [facility] [place] [address] PCP - General 10/12/17 documented as of this encounter
--- OUTSIDE RECORDS SUMMARY | 2024-09-04 09:19 | XMS_ITS | Encounter Summary ---
Author Organization [facility] Address [address] [place] [address] Phone Care Team Providers Care Breast Trimmer Name Role Phone Missael Gonzalez MD Primary Care Provider [phone] Encounter Details Date Type Department Care Team (Late st Contact Info) Description 08/01/2013 Documentation [facility] [place] [address] [place], [place] [phone] Family Medicine, Physician [address] [place], [place] [address] Social History Tobacco Use Types Packs/Day Years [...] on filedocumented in this encounter Care Teams Breast Trimmer Relationship Specialty Start Date End Date Missael Gonzalez MD [address] [place] [address] [place] [address] PCP - General 10/12/17 documented as of this encounter
--- OUTSIDE RECORDS SUMMARY | 2024-09-04 09:19 | XMS_ITS | Encounter Summary ---
Author Organization [facility] Address [address] [place] [address] Phone Care Team Providers Care Solidworks Mechanical Designer Name Role Phone Missael Gonzalez MD Primary Care Provider [phone] Encounter Details Date Type Department Care Team (Late st Contact Info) Description 06/19/2015 Documentation [facility] [place] Family [place] [address] [place] [address] Family Medicine, Physician [address] [place], [place] [address] Social History Tobacco Use Types Packs/Day Years [...] on filedocumented in this encounter Care Teams Solidworks Mechanical Designer Relationship Specialty Start Date End Date Missael Gonzalez MD [address] [place] [address] [place] [address] PCP - General 10/12/17 documented as of this encounter
--- OUTSIDE RECORDS SUMMARY | 2024-09-04 09:19 | XMS_ITS | Encounter Summary ---
Author Organization [facility] Address [address] [place] [address] Phone Care Team Providers Care Authorization Specialist Name Role Phone Missael Gonzalez MD Primary Care Provider [phone] Encounter Details Date Type Department Care Team (Late st Contact Info) Description 07/30/2010 Documentation [facility] [place] [address] [place], [place] [id number] Family Medicine, Physician [address] [place], [place] [address] Social History Tobacco Use Types Packs/Day Years [...] on filedocumented in this encounter Care Teams Authorization Specialist Relationship Specialty Start Date End Date Missael Gonzalez MD [address] [place] [address] [place] [address] PCP - General 10/12/17 documented as of this encounter
--- OUTSIDE RECORDS SUMMARY | 2024-09-04 09:19 | XMS_ITS | Encounter Summary ---
Author Organization [facility] Address [address] [place] [address] Phone Care Team Providers Care Guardian Family Member Name Role Phone Missael Gonzalez MD Primary Care Provider [phone] Encounter Details Date Type Department Care Team (Late st Contact Info) Description 08/01/2013 [facility] [address] [place] [address] Family Medicine, Physician [address] [place], [place] [id number] Social History Tobacco Use Types Packs/Day Years [...] on filedocumented in this encounter Care Teams Guardian Family Member Relationship Specialty Start Date End Date Missael Gonzalez MD [address] [place] [address] [place] [address] PCP - General 10/12/17 documented as of this encounter
--- OUTSIDE RECORDS SUMMARY | 2024-09-04 09:19 | XMS_ITS | Encounter Summary ---
Author Organization [facility] Address [address] [place] [address] Phone Care Team Providers Care Irrigation Supervisor Name Role Phone Missael Gonzalez MD Primary Care Provider [phone] Encounter Details Date Type Department Care Team (Late st Contact Info) Description 08/12/2014 Documentation [facility] [place] [address] [place] [address] Family Medicine, Physician [address] [place], [place] [address] Social History Tobacco Use Types Packs/Day Years [...] on filedocumented in this encounter Care Teams Irrigation Supervisor Relationship Specialty Start Date End Date Missael Gonzalez MD [address] [place] [address] [place] [address] PCP - General 10/12/17 documented as of this encounter
--- OUTSIDE RECORDS SUMMARY | 2024-09-04 09:19 | XMS_ITS | Encounter Summary ---
Author Organization [facility] Address [address] [place] [address] Phone Care Team Providers Care Operations And Maintenance Technican Name Role Phone Missael Gonzalez MD Primary Care Provider [phone] Encounter Details Date Type Department Care Team (Late st Contact Info) Description 08/28/2013 Medication [place] [facility] [place] [address] [place] [address] Family Medicine, Physician [address] [place] [address] Social History Tobacco Use Types Packs/Day Years [...] on filedocumented in this encounter Care Teams Operations And Maintenance Technican Relationship Specialty Start Date End Date Missael Gonzalez MD [employer] [facility] [place] [address] PCP - General 10/12/17 documented as of this encounter
--- OUTSIDE RECORDS SUMMARY | 2024-09-04 09:19 | XMS_ITS | Encounter Summary ---
Author Organization [facility] Address [address] [place] [address] Phone Care Team Providers Care Home Care Administrator Name Role Phone Missael Gonzalez MD Primary Care Provider [phone] Encounter Details Date Type Department Care Team (Late st Contact Info) Description 08/01/2013 Documentation [facility] [place] [address] [place], [place] [phone] Family Medicine, Physician [address] [place], [place] [address] Social History Tobacco Use Types Packs/Day Years [...] on filedocumented in this encounter Care Teams Home Care Administrator Relationship Specialty Start Date End Date Missael Gonzalez MD [address] [place] [address] [place] [address] PCP - General 10/12/17 documented as of this encounter
== END 2024-09-04 09:17 | disposition home or self-care (01) ==
LOC: HO.HVS 08:50
PROVIDERS: PCP Internal Medicine; Visit Provider Physician Assistant Surgical
DX: I83.11 Varicose veins of right lower extremity with inflammation (principal); I83.12 Varicose veins of left lower extremity with inflammation
CPT/HCPCS: 99204

== ENCOUNTER → 2024-09-04 08:49 | Outpatient (BNVA) | payer OTHER, SELFPAY | PROVIDERS: PCP Internal Medicine; Visit Provider Physician Assistant Surgical ==